=== PATIENT | female | born 1945 | race Caucasian/White ===

== ENCOUNTER 2024-02-06 05:11 | Observation (INO) ==
--- NOTE | 2023-12-29 09:04 | PAT Medication Instructions ---
Medication Instructions Date of Service December 29, 2023 Home Medications glimepiride 4 mg tablet 4 mg PO QAM metformin 500 mg tablet 1,000 mg PO BID omega 9-ezv-mwu-fish oil 1,200 mg (144 mg-216 mg) capsule (Fish Oil) 1 cap PO QPM pravastatin 40 mg tablet 40 mg PO QPM Prevagen 10 mg PO QAM aspirin 81 mg capsule 81 mg PO QAM cholecalciferol (vitamin D3) 25 mcg (1,000 unit) capsule (Vitamin D3) 25 mcg PO QAM insulin glargine 100 unit/mL subcutaneous solution (Lantus U-100 Insulin) 35 unit subcut HS insulin glargine 100 unit/mL subcutaneous solution (Lantus U-100 Insulin) 50 unit subcut QAM krill jlk-xm5-tbl-kmj-mw4-fiz-astax 1,500 mg-165 mg-67.5 mg capsule (Krill Oil ([place] 3 and 6)) 1 cap PO QAM liraglutide 0.6 mg/0.1 mL (18 mg/3 mL) subcutaneous pen injector (Victoza 2-Darnell) 1.8 mg subcut QAM vit C-vit B-lxlcko-llsctrbo-omega 3 100 mg-15 unit-2 mg-100 mg capsule 1 cap PO QAM STOP taking 2 weeks before surgery omega 1-fek-qsz-fish oil 1,200 mg (144 mg-216 mg) capsule (Fish Oil) 1 cap PO QPM Prevagen 10 mg PO QAM krill jpq-gb8-qhl-mww-vh1-scs-astax 1,500 mg-165 mg-67.5 mg capsule (Krill Oil ([place] 3 and 6)) 1 cap PO QAM vit C-vit R-hjbkbp-nzrvehom-omega 3 100 mg-15 unit-2 mg-100 mg capsule 1 cap PO QAM DO NOT take the morning of surgery glimepiride 4 mg tablet 4 mg PO QAM metformin 500 mg tablet 1,000 mg PO BID cholecalciferol (vitamin D3) 25 mcg (1,000 unit) capsule (Vitamin D3) 25 mcg PO QAM liraglutide 0.6 mg/0.1 mL (18 mg/3 mL) subcutaneous pen injector (Victoza 2-Darnell) 1.8 mg subcut QAM Take morning of surgery With a small sip of water, OTHERWISE NOTHING TO EAT OR DRINK AFTER MIDNIGHT: aspirin 81 mg capsule 81 mg PO QAM (unless surgeon directed otherwise) Take evening before surgery metformin 500 mg tablet 1,000 mg PO BID pravastatin 40 mg tablet 40 mg PO QPM insulin glargine 100 unit/mL subcutaneous solution (Lantus U-100 Insulin) 35 unit subcut HS Insulin Dependent Diabetic Patients * Test your blood sugar the morning of surgery * If Blood Sugar is GREATER THAN 150, take HALF of your regular dose of: insulin glargine 100 unit/mL subcutaneous solution (Lantus U-100 Insulin) (25 units) * If Blood Sugar is LESS THAN 150, DO NOT TAKE ANY: insulin glargine 100 unit/mL subcutaneous solution (Lantus U-100 Insulin) Other Notes If you have any questions please call us at [phone] or [phone] or [phone] or [phone]
--- NOTE | 2024-01-04 10:36 | Anesthesiology Consultation ---
Date of Service January 04, 2024 Assessment & Plan (1) Encounter for pre-operative examination: - systolic murmur: pt denies dizziness/lightheadedness/presyncope or dyspnea. She states has been told of a murmur in the past, no available records at this time. No significant valvular pathology on 2020 echocardiogram. Case discussed in detail with Dr. Fernandez who advised nothing is needed prior to surgery from her standpoint, but recommended a continuity of care document to PCP. Continuity of care document to be faxed to PCP, Dr. April Conte. - check BSG am DOS. - Outpatient joint assessment: Patient is currently scheduled for inpatient pathway. If re-evaluated and patient/surgeon requests outpatient pathway, patient is not recommended candidate for outpatient joint program from anesthesia standpoint. Chart Review Chart Review: Acceptable Risk for Surgery and Patient seen in Pre Admission Testing Teaching & Discussion Pre-Anesthesia Teaching/Discussion Notes: Instructed NPO after midnight before surgery, except medications with 15 cc of water. Medication instructions provided according to the PAT guidelines. History Surgery Operation Date: 02/06/24 07:15 Proposed Procedures p Right Total Knee Arthroplasty - Josh Sands, DO Height/Weight Height: 5 ft 4 in Weight: 76.1 kg Allergies Allergy/AdvReac Type Severity Reaction Status Date / Time Penicillins Allergy Severe Hives Verified 12/23/23 14:41 acetaminophen [From Percocet] Allergy Intermediate Confusion Verified 12/23/23 14:41 adhesive tape Allergy Mild Rash Verified 12/23/23 14:41 codeine Allergy Mild Confusion Verified 12/23/23 14:41 oxycodone [From Percocet] Allergy Mild Confusion Verified 12/23/23 14:41 simvastatin [From Zocor] Allergy Mild Cough Verified 12/23/23 14:41 ACEON Allergy Mild Rash Uncoded 12/23/23 14:41 AVAPRO Allergy Mild Unknown Uncoded 12/23/23 14:41 BACTRIM Allergy Mild Nausea Uncoded 12/23/23 14:41 MORPHINE Allergy Mild Vomiting Uncoded 12/23/23 14:41 OXYCODONE Allergy Mild Rash Uncoded 12/23/23 14:41 VANCOMYCIN Allergy Mild Rash Uncoded 12/23/23 14:41 VICODIN Allergy Mild Rash Uncoded 12/23/23 14:41 ZOCOR Allergy Mild Rash Uncoded 12/23/23 14:41 Medications Home Medications Medication Instructions Recorded Confirmed Last Taken glimepiride 4 mg tablet 4 mg PO QAM 12/20/23 12/23/23 Unknown metformin 500 mg tablet 1,000 mg PO BID 12/20/23 12/23/23 Unknown omega 9-eip-uyc-fish oil 1,200 mg 1 cap PO QPM 12/20/23 12/23/23 Unknown (144 mg-216 mg) capsule (Fish Oil) pravastatin 40 mg tablet 40 mg PO QPM 12/20/23 12/23/23 Unknown Prevagen 10 mg PO QAM 12/23/23 12/23/23 Unknown aspirin 81 mg capsule 81 mg PO QAM 12/23/23 12/23/23 Unknown cholecalciferol (vitamin D3) 25 25 mcg PO QAM 12/23/23 12/23/23 Unknown mcg (1,000 unit) capsule (Vitamin D3) insulin glargine 100 unit/mL 35 unit subcut HS 12/23/23 12/23/23 Unknown subcutaneous solution (Lantus U-100 Insulin) insulin glargine 100 unit/mL 50 unit subcut QAM 12/23/23 12/23/23 Unknown subcutaneous solution (Lantus U-100 Insulin) krill 1 cap PO QAM 12/23/23 12/23/23 Unknown oak-bk9-uqf-ckn-ov8-tct-astax 1,500 mg-165 mg-67.5 mg capsule (Krill Oil ([place] 3 and 6)) liraglutide 0.6 mg/0.1 mL (18 mg/3 1.8 mg subcut QAM 12/23/23 12/23/23 Unknown mL) subcutaneous pen injector (Victoza 2-Darnell) vit C-vit M-cuxyyd-nxdxrvwt-omega 1 cap PO QAM 12/23/23 12/23/23 Unknown 3 100 mg-15 unit-2 mg-100 mg capsule ibuprofen 100 mg tablet 200 mg PO Q6H PRN Pain 01/04/24 01/04/24 Unknown losartan 25 mg tablet 25 mg PO QPM 01/04/24 01/04/24 Unknown Additional Notes: Patient was instructed to check with surgeon's office on ibuprofen instructions and this was written on provided medication instructions. She verbalized understanding. Past Medical History Medical History (Updated 01/04/24 @ 10:49 by Catalina Green PA-C) Diabetes IDDM Hx of nephrolithotomy with removal of calculi (~1971) Hx of renal calculi last renal stone 01/2021 Hyperlipidemia Nausea and vomiting after administration of anesthetic agent denies needing scop patch Patient denies h/o stroke, seizures, heart attack, heart failure, HTN, blood clots/DVTs or blood transfusions. 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 > had repeat surgery approx 18 months later for cyst Hx of bilateral cataract extraction Hx of bladder repair surgery Hx of tonsillectomy Hx of tubal ligation Hx of vaginal hysterectomy Past Anesthesia History No Hx of Anesthesia Complications and No Family Hx of Anesthesia Complications History of PONV No Hx of Motion Sickness and History of PONV (denies needing scop patch) Social History Smoking Status: Former smoker Smoking cigarettes per day: 1/2 PPD Do You Dip or Chew Tobacco: No Smoking End Date: Quit 2003 Hx Alcohol Use: Yes Alcohol type: beer alcohol intake frequency: holidays/special occasions only Hx Substance Use: No substance use type: does not use Review of Systems Snoring, denies witnessed apneas. Patient denies chest pain, shortness of breath, dyspnea on exertion, reflux, fever, chills, cough, wheezing, or palpitations. Physical Exam Vital Signs Vitals BP 172/88 P 72 TEMP 98.3 SP02 98% on RA RESP 18 Physical Patient resting comfortably in chair in no acute distress, alert and oriented, responding appropriately throughout visit Full cervical extension range of motion without pain TMD 3.5 finger breadths Mallampati Score 2 Dentition: removable plate; denies chipped or loose teeth, caps/crowns, implants or bridges Lungs: normal respiratory effort. Good air movement, clear throughout to auscultation, no adventitious breath sounds Cardiac: regular rate and rhythm, 3/6 systolic murmur RUSB Carotid arteries: negative bruit bilat Lab Results Anesthesia Preop Results Results Anesthesia Widget: WBC 5.13 K/ul (4.8-10.8) 01/04/24 Hgb 12.8 g/dl (12.0-16.0) 01/04/24 Hct 38.6 % (37.0-47.0) 01/04/24 Plt 214 K/uL (130-400) 01/04/24 Na 138 mmol/L (136-145) 01/04/24 K 4.6 mmol/L (3.5-5.1) 01/04/24 Cl 107 mmol/L (98-107) 01/04/24 CO2 24 mmol/L (21-32) 01/04/24 BUN 20 mg/dl (6-23) 01/04/24 Creat 0.98 mg/dl (0.6-1.2) 01/04/24 Glucose Level 91 mg/dl (70-99(Fasting)) 01/04/24 PT 11.1 Seconds (9.0-12.0) 01/04/24 PTT 29 Seconds (21-31) 01/04/24 INR 1.0 (0.9-1.1) 01/04/24 HA1c 7.6 % (4.5-5.6) H 01/04/24 Blood Type A Positive 01/04/24 Antibody Screen NEGATIVE 01/04/24 Testing Laboratory Results Surgeon's office notified of elevated A1c. Electrocardiogram Date: 01/04/24 NSR, rate 73 bpm Left axis deviation Nonspecific intraventricular conduction block Minimal voltage criteria for LVH, may be normal variant Chest X-Ray Date: 01/04/24 No acute chest disease. Echocardiogram Date: 09/18/21 EF 60% No obvious RWMA No significant valvular pathology
--- NOTE | 2024-02-02 14:29 | History & Physical Report ---
Date of Service February 02, 2024 Assessment & Plan (1) Osteoarthritis of right knee: We will proceed with a right total knee arthroplasty. Postoperatively she will be started on aspirin for DVT prophylaxis and kept overnight in the hospital for postop medical management. She plans to have the hospital set up home health for discharge. History of Present Illness Chief Complaint: Osteoarthritis of the right knee. Primary Care Provider: NO PCP Sommer is a pleasant 78-year-old female who has been dealing with chronic increasing bilateral knee pain. Her biggest complaint is getting off her kitchen floors. She also has pain going up and down stairs. Most of her pain is laterally. She has noticed an extensive valgus deformity of her right knee. X-rays clinical examination been diagnostic for advanced osteoarthritis of the right knee. After failing conservative treatment, she has elected proceed with a right total knee arthroplasty. Allergies Allergy/AdvReac Type Severity Reaction Status Date / Time Penicillins Allergy Severe Hives Verified 12/23/23 14:41 acetaminophen [From Percocet] Allergy Intermediate Confusion Verified 12/23/23 14:41 adhesive tape Allergy Mild Rash Verified 12/23/23 14:41 codeine Allergy Mild Confusion Verified 12/23/23 14:41 irbesartan Allergy Mild Unknown Verified 02/02/24 06:51 oxycodone [From Percocet] Allergy Mild Confusion Verified 12/23/23 14:41 simvastatin [From Zocor] Allergy Mild Cough Verified 12/23/23 14:41 hydrocodone [From Vicodin] AdvReac Mild Rash Verified 02/02/24 06:51 morphine AdvReac Mild Vomiting Verified 02/02/24 06:51 perindopril AdvReac Mild Rash Verified 02/02/24 06:48 sulfamethoxazole AdvReac Mild Nausea Verified 02/02/24 06:51 [From Bactrim] trimethoprim [From Bactrim] AdvReac Mild Nausea Verified 02/02/24 06:51 vancomycin AdvReac Mild Rash Verified 02/02/24 06:51 Home Medications Medication Instructions Recorded Confirmed Type glimepiride 4 mg tablet 4 mg PO QAM 12/20/23 12/23/23 History metformin 500 mg tablet 1,000 mg PO BID 12/20/23 12/23/23 History omega 8-bwd-bsg-fish oil 1,200 mg 1 cap PO QPM 12/20/23 12/23/23 History (144 mg-216 mg) capsule (Fish Oil) pravastatin 40 mg tablet 40 mg PO QPM 12/20/23 12/23/23 History Prevagen 10 mg PO QAM 12/23/23 12/23/23 History aspirin 81 mg capsule 81 mg PO QAM 12/23/23 12/23/23 History cholecalciferol (vitamin D3) 25 25 mcg PO QAM 12/23/23 12/23/23 History mcg (1,000 unit) capsule (Vitamin D3) insulin glargine 100 unit/mL 35 unit subcut HS 12/23/23 12/23/23 History subcutaneous solution (Lantus U-100 Insulin) insulin glargine 100 unit/mL 50 unit subcut QAM 12/23/23 12/23/23 History subcutaneous solution (Lantus U-100 Insulin) krill 1 cap PO QAM 12/23/23 12/23/23 History rew-gr6-mkl-kkj-yp7-tkf-astax 1,500 mg-165 mg-67.5 mg capsule (Krill Oil ([place] 3 and 6)) liraglutide 0.6 mg/0.1 mL (18 mg/3 1.8 mg subcut QAM 12/23/23 12/23/23 History mL) subcutaneous pen injector (Victoza 2-Darnell) vit C-vit W-qptqll-hdfkvopj-omega 1 cap PO QAM 12/23/23 12/23/23 History 3 100 mg-15 unit-2 mg-100 mg capsule ibuprofen 100 mg tablet 200 mg PO Q6H PRN Pain 01/04/24 01/04/24 History losartan 25 mg tablet 25 mg PO QPM 01/04/24 01/04/24 History Past Med/Surg History Medical History Nausea and vomiting after administration of anesthetic agent denies needing scop patch Hyperlipidemia Hx of renal calculi last renal stone 01/2021 Hx of nephrolithotomy with removal of calculi (~1971) Diabetes IDDM Surgical History Hx of bilateral cataract extraction 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 > had repeat surgery approx 18 months later for cyst Hx of tubal ligation Hx of bladder repair surgery Hx of vaginal hysterectomy History of lithotripsy History of arthroscopy of both knees Hx of tonsillectomy Social History Smoking Status: Former smoker Tobacco Type: Cigarettes Cigarettes Per Day: 1/2 PPD; Second Hand Exposure: No; Do You Dip or Chew Tobacco: No; Hx Alcohol Use: Yes Alcohol type: beer Hx Substance Use: No Preferred Language: Amharic Communication Ability: Effective Print Inspector Required: No Beliefs That Will Affect Care: None Current Living Situation: Alone Feels Safe at Home: Yes Assistive Devices: Denture - Upper Review of Systems All systems reviewed & are unremarkable except as noted in HPI & below. Physical Exam On physical examination the right knee, she has a valgus deformity. She has tenderness palpation of the distal lateral femoral condyle and over the lateral joint line.. Constitutional WD/WN, vitals as above Eyes PERRL, conjunctivae normal, anicteric sclerae ENMT external ear and nose normal, oropharynx normal Neck trachea midline, no thyromegaly Respiratory normal respiratory effort Cardiovascular RRR, no murmur, no edema Gastrointestinal (Abdomen) normal bowel sounds, soft, nontender, no hepatosplenomegaly Psychiatric A+Ox3, euthymic affect Results & Data Results & Data Laboratory Results . Diagnostic Findings X-rays of the right knee show advanced osteoarthritis with joint space narrowing, osteophyte formation, and qibr-jy-bvdf tubulation. PG Care Time/CCT Total # of Minutes Spent Total Time Spent with Patient: Total time spent is greater than 50% in coordination of care (as documented) at patient's floor/unit and/or counseling patient: Coding Level of Care Code None Diagnoses Osteoarthritis of right knee M17.11
[2024-02-06] MEDS: LR 500ML BOLUS, THEN 15ML/HR IV SCH (05:53)
[2024-02-06] MEDS: ACETAMINOPHEN 500 MG TAB PO SCH ×2 (05:54→13:41)
[2024-02-06] MEDS: GABAPENTIN 300 MG CAP PO SCH (05:55)
[2024-02-06] MEDS: FAMOTIDINE 20 MG TAB PO SCH (05:55)
[2024-02-06] MEDS: dexAMETHasone**PF** 10 MG/ML VIAL IV SCH (05:55)
[2024-02-06] MEDS ORDERED: ROPIVACAINE 0.5% 5 MG/ML 30 ML VIAL ONE (06:11)
[2024-02-06] MEDS ORDERED: BUPIVACAINE 0.5 % 5 MG/1 ML PF 10ML VIAL ONE (06:11)
--- NOTE | 2024-02-06 06:21 | History & Physical Bridge Note ---
Date of Service February 06, 2024 History & Physical Bridge Note I have examined the patient, reviewed the History & Physical and in the interval since the performance of the History & Physical I have noted the following changes of clinical significance: no changes noted
[2024-02-06] MEDS ORDERED: fentaNYL citrate PF 100 MCG/2 ML VIAL ONE (06:28)
[2024-02-06] MEDS ORDERED: MIDAZOLAM HCL 1 MG/ML 2ML VIAL ONE (06:28)
[2024-02-06] MEDS ORDERED: Nursing to Pharmacy Communication SCH (06:30)
[2024-02-06] MEDS ORDERED: PROPOFOL IV EMULSION 10 MG/ML 20 ML VIAL IV ONE (06:31)
[2024-02-06] MEDS ORDERED: ONDANSETRON INJ 2 MG/ML 2 ML VIAL ONE (06:31)
[2024-02-06] MEDS ORDERED: fentaNYL citrate PF 100 MCG/2 ML VIAL IV PRN (06:33)
[2024-02-06] MEDS ORDERED: ONDANSETRON INJ 2 MG/ML 2 ML VIAL IV PRN (06:33)
[2024-02-06] MEDS ORDERED: ePHEDrine sulfate 50 MG/ML AMP IV PRN (06:33)
[2024-02-06] MEDS ORDERED: ATROPINE SULFATE 0.1 MG/ML 10ML SYR IV PRN (06:33)
[2024-02-06] MEDS: LR 60ML/HR IV SCH (06:41)
[2024-02-06] MEDS: TRANEXAMIC ACID 1,000 MG **IV Pre-op IV SCH (06:42)
[2024-02-06] MEDS: ceFAZolin 2000MG 2,000 MG/15 ML SYR IV SCH ×2 (07:04→13:42)
[2024-02-06] MEDS: ROPIV 0.5% 246mg, Ketorolac 30mg, EPINEPHrine 0.5mg in NSS INFIL SCH (07:48)
[2024-02-06] MEDS: ORTHO JOINT ANESTHETIC ONE (07:49)
[2024-02-06] MEDS: TRANEXAMIC ACID 1,000 MG **IV Intra-op IV SCH (08:00)
--- NOTE | 2024-02-06 08:09 | Operative Report ---
PG Post Operative Report Pre & Post Diagnosis Operation Date: 02/06/24 07:15 Pre-Op Diagnosis: Right Knee Osteoarthritis Post-Op Diagnosis: Right Knee Osteoarthritis I identified the patient and participated in the time-out.: Yes Procedure Operation Date: 02/06/24 07:15 Actual Procedures p Right Total Knee Arthroplasty(Right) - Josh Sands DO Surgeon Josh Sands DO Immigration Officer Josh Becerra PA-C Estimated Blood Loss 30 Findings Consistent with Post-Op Diagnosis Specimens Right femoral tibial bone Description of Procedure Implants used: I used a John Persona total knee arthroplasty system with a size 5 standard PS femur, C tibia, 31 oval patella, and a size 12 CPS polyethylene bearing. All components were cemented in place with Biomet cement. Sommer arrived [facility] for the above procedure. She was seen in the preoperative holding area and the operative extremity was identified and signed. She was given a preoperative antibiotic, TXA, a spinal anesthetic and an adductor nerve block. She was taken back to the operating room and laid on the table in supine position. She was given basic sedation. The operative knee was then prepped and draped in sterile fashion. A timeout was done, and the patient and the operative extremity was properly identified. A midline incision was made directly over the patella. Dissection was taken down to the extensor mechanism. A midvastus arthrotomy was used. The medial retinaculum was released and the fat pad was mostly excised. The knee was flexed and the ACL, PCL, and meniscus were removed. A drill was sent down the center of the femoral canal followed by an intramedullary tony. Off that tony a distal femoral cutting block was placed. 9 mm was resected off the distal femur at 5 of valgus. A posterior referencing AP sizing guide was then placed on the distal femur. The femur measured to be a size 5. 2 drill holes were placed in 3 of external rotation. A 4-in-1 cutting block was then impacted into place. Anterior, posterior, and chamfer cuts were then made. The proximal tibia was then exposed. An external tibial alignment guide was placed. A tibial cut guide was then anchored in place and the proximal tibia was then resected. The posterior aspect of the knee was then opened up and any additional meniscus fragments and osteophytes were removed. The tibia measured to be a size C. The tibial plate was then placed in the appropriate rotation and the tibia was drilled and punched. Trial components were then placed. I used a size 12 CPS polyethylene insert. The knee was brought through a full range of motion and felt to be stable. The peg holes for the femoral component were then drilled. The patella was then everted and 9 mm was resected off the posterior aspect of the patella. The patella measured to be a size 31 oval. 3 peg holes were then drilled. A trial patella was placed. The knee was once again brought through a full range of motion and felt to be stable. Trial components were then removed. The surrounding soft tissues were injected with 100 cc of an orthopedic pain control cocktail. All components were then cemented into place with Biomet cement. The final polyethylene insert was then snapped into place. Once cement was dry the tourniquet was deflated. Hemostasi s was obtained. A dilute betadyne lavage was then done for 3 minutes. The joint was then irrigated with normal saline solution. The midvastus arthrotomy was then closed with #1 Vicryl suture. The skin was closed with 2-0 Vicryl, 3- 0V lock suture, and kika. A soft compressive dressing was placed. She was then transferred to a hospital bed and taken to the postanesthesia care unit in stable condition. She tolerated the procedure well. Josh Becerra PA-C, was present for the entire procedure. He was critical for patient positioning, prepping, draping, retraction exposure, wound closure and application of sterile dressing. I attest to the content of the Intraoperative Record and any orders documented therein. Any exceptions are noted below.
--- NOTE | 2024-02-06 08:57 | XRay Report ---
RIGHT KNEE 2 VIEWS History: Right total knee arthroplasty. Degenerative arthritis. Postop. FINDINGS: The patient is status post a right total knee arthroplasty. The hardware is intact. No frac ture or dislocation. Skin kika are in place. IMPRESSION: Right total knee arthroplasty. No evidence for hardware complication. ACT 112: Negative or not required by law. Electronically signed by: Cong Costa M.D. 02/06/2024 8:55 AM
--- NOTE | 2024-02-06 09:39 | Anesthesiology Progress Note ---
Date of Service February 06, 2024 Anesthesia Post Procedure Vital Signs Vital Signs: Temp Pulse Pulse Resp BP Pulse Ox O2 Del Method 02/06/24 09:35 71 16 140/63 94 Room Air 02/06/24 09:25 80 13 141/71 H 97 Room Air 02/06/24 09:15 71 15 135/69 97 Room Air 02/06/24 09:05 75 17 144/74 H 98 Room Air 02/06/24 08:55 74 15 149/72 H 96 Room Air 02/06/24 08:45 76 18 138/68 96 Room Air 02/06/24 08:35 75 12 133/64 100 Oxymask 02/06/24 08:27 97.5 F L 87 19 123/66 99 Oxymask 02/06/24 05:18 98.6 F 74 17 177/85 H 98 Room Air O2 Flow Rate 02/06/24 09:35 02/06/24 09:25 02/06/24 09:15 02/06/24 09:05 02/06/24 08:55 02/06/24 08:45 02/06/24 08:35 5 02/06/24 08:27 5 02/06/24 05:18 Pain Intensity Right Knee: Pain Intensity: 2 Transfer of Care Handoff Completed per policy Notes Mental Status: alert / awake / arousable and participated in evaluation Patient Amnestic to Procedure: Yes Nausea / Vomiting: adequately controlled Pain: adequately controlled Airway Patency, RR, SpO2: stable & adequate BP & HR: stable & adequate Hydration State: stable & adequate Neuraxial Anesthesia: was administered and sensory block is resolving Anesthetic Complications: no major complications apparent and Pt Satisfied with anesthetic care
[2024-02-06] MEDS ORDERED: bisacodyL 10 MG SUPP PR PRN (10:14)
[2024-02-06] MEDS ORDERED: PHARMACY GLYCEMIC MGMT CONSULT PRN (10:14)
[2024-02-06] MEDS ORDERED: MAGNESIUM HYDROXIDE SUSP 30 ML UDC PO PRN (10:14)
[2024-02-06] MEDS ORDERED: HYDROmorphone INJ 0.5 MG/0.5 ML SYR IV PRN (10:14)
[2024-02-06] MEDS ORDERED: METOCLOPRAMIDE HCL INJ 5 MG/ML 2 ML VIAL IV PRN (10:14)
[2024-02-06] MEDS ORDERED: NALOXONE HCL 0.4 MG/1 ML VIAL/CARP IV PRN (10:14)
[2024-02-06] MEDS: ceFAZolin 2,000 MG/15 ML IV PUSH IV ONE (10:27)
--- NOTE | 2024-02-06 10:40 | Pharmacy Report ---
Pharmacy Glycemic Short Note 2 - Date of Service February 06, 2024 - Glycemic Short BSG Results (Last 24 hours): 02/06/24 02/06/24 05:46 09:28 POC Glucose 103 H 127 H OUTPATIENT ANTIDIABETIC REGIMEN: * Lantus 50 units SQ QAM * Lantus 35 units SQ HS * Victoza 1.8mg SQ daily * metformin ER 1000mg BID * glimepiride 4mg QAM * HbA1c 7.6% (01/04/24) ASSESSMENT: * Sommer is a 79YOF admitted status post right total knee arthroplasty and a history of type 2 diabetes mellitus. Pharmacy has been consulted to assist with glycemic management while inpatient. * Preoperative BSG in goal range, dexamethasone 10mg IV given preoperatively, last dose Lantus given last night prior to admission, will give approximately 0.3units/kg basal insulin to cover steroids. Basal scale added between to allow for up to a weight based stress of 3 daily. * Novolog initiated at a weight based stress of 3, may need loosened as steroid effects wear off. PLAN FOR INPATIENT GLYCEMIC CONTROL: * Hold outpatient oral diabetes medications * Basal insulin * Lantus 20 units SQ with lunch x1 * Lantus 0-20 units SQ BID (see eMAR for additional details) * Bolus insulin * NovoLog per scale ACHS or Q6hrs while NPO * Goal Range: Low 110 mg/dL - High 140 mg/dL * Correction Factor: 20 mg/dL/unit * Nutritional / Prandial insulin per carb ratio of 1 unit per 6 grams CHO consumed
[2024-02-06] MEDS: DOCUSATE SODIUM 100 MG CAP PO SCH (10:54)
[2024-02-06] MEDS: SODIUM CHLORIDE 0.9% 1,000 ML IV SCH (10:54)
[2024-02-06] MEDS: KETOROLAC TROMETHAMINE 15 MG/ML VIAL IV SCH (10:54)
[2024-02-06] MEDS: ASPIRIN 81 MG ECTAB PO SCH (11:21)
[2024-02-06] MEDS: MULTIVITAMIN TAB PO SCH (11:21)
[2024-02-06] MEDS: LANTUS PER UNIT CHARGE SC ONE (12:38)
[2024-02-06] MEDS: INSULIN ASPART PER UNIT CHARGE SC SCH (12:38)
[2024-02-06] MEDS: LANTUS PER UNIT CHARGE SC SCH (21:11)
[2024-02-06] MEDS: PRAVASTATIN SOD 40 MG TAB PO SCH (21:12)
[2024-02-06] MEDS: LOSARTAN POTASSIUM 25 MG TAB PO SCH (21:14)
[2024-02-06] MEDS: SENNA 8.6 MG TAB PO SCH (21:15)
[2024-02-07] MEDS: ONDANSETRON INJ 2 MG/ML 2 ML VIAL IV PRN (07:25)
[2024-02-07] MEDS ORDERED: LOSARTAN POTASSIUM 25 MG TAB PO SCH (09:15)
[2024-02-07] MEDS: LANTUS PER UNIT CHARGE SC SCH ×2 (09:33→21:21)
[2024-02-07] MEDS: traMADol HCL 50 MG TABLET PO PRN (10:05)
[2024-02-07] MEDS: LOSARTAN POTASSIUM 25 MG TAB PO SCH (10:05)
--- NOTE | 2024-02-07 11:11 | Orthopedic Progress Note ---
Date of Service February 07, 2024 Assessment & Plan (1) Status post right knee replacement: Overall, she is doing quite well today with good pain control to the right knee. She participated well with physical therapy this morning working on ambulation and range of motion exercises. She is on aspirin for DVT prophylaxis. She can be discharged to home later this morning pending formal physical therapy evaluation recommendations. She is also having a little bit of hypertension this morning but there was some confusion with her losartan. Losartan was given and we will recheck her blood pressure prior to discharge. If stable, she can be discharged home. She will follow-up with orthopedics in 2 weeks for postoperative management. Subjective . Sommer was seen and evaluated this morning resting comfortably in no apparent distress. She notes that her pain is well-controlled to the right knee. She has been up and out of bed with no significant issues today. She has worked with physical therapy today and was able to participate with ambulation and range of motion exercises. She denies any other concerns today. Review of Systems All systems reviewed & are unremarkable except as noted in HPI & below. Physical Exam . On physical evaluation of the right knee, dressings are clean, dry, intact. Her leg is held in full extension. She has active plantarflexion dorsiflexion of the right ankle. +2 DP and PT pulses. Less than 2-second capillary refill. Normal sensation. Neurovascular intact. Results & Data Results & Data Laboratory Results . Diagnostic Findings . Postoperative x-rays of the right knee show prosthesis to be anatomical alignment with no signs of fracture complication or loosening. PG Care Time/CCT Total # of Minutes Spent Total Time Spent with Patient: Total time spent is greater than 50% in coordination of care (as documented) at patient's floor/unit and/or counseling patient: Coding Level of Care Code 79559 Post Operative Follow-Up Diagnoses Status post right knee replacement Z96.651
--- NOTE | 2024-02-07 11:13 | Discharge Summary ---
Date of Service February 07, 2024 Admission HPI (Per Admitting) Sommer is a pleasant 78-year-old female who has been dealing with chronic increasing bilateral knee pain. Her biggest complaint is getting off her kitchen floors. She also has pain going up and down stairs. Most of her pain is laterally. She has noticed an extensive valgus deformity of her right knee. X-rays clinical examination been diagnostic for advanced osteoarthritis of the right knee. After failing conservative treatment, she has elected proceed with a right total knee arthroplasty. Admission Exam (Per Admitting) On physical examination the right knee, she has a valgus deformity. She has tenderness palpation of the distal lateral femoral condyle and over the lateral joint line.. Principal Diagnosis Same as "Discharge Diagnosis" noted below under Discharge Instructions. Discharge Exam . On physical evaluation of the right knee, dressings are clean, dry, intact. Her leg is held in full extension. She has active plantarflexion dorsiflexion of the right ankle. +2 DP and PT pulses. Less than 2-second capillary refill. Normal sensation. Neurovascular intact. Discharge Data Procedures Performed Operation Date: 02/06/24 07:15 Actual Procedures p Right Total Knee Arthroplasty(Right) - Josh Sands DO Ordered Studies 02/06/24 05:00 US - OR guided needle placemen Routine Hospital Course (1) Status post right knee replacement: On February 06, 2024 Sommer arrived at [facility] and underwent a right total knee arthroplasty performed by Dr. Sands with no complications. She had a spinal anesthetic. Postoperatively, she was started on aspirin for DVT prophylaxis and transferred to the general orthopedic floor in stable condition. Her hospital course was uneventful. On postoperative day #1, her vital signs are stable and her pain is well-controlled. She participated well with physical therapy working on ambulation and range of motion exercises. She was then discharged home in stable condition. She will follow-up in 2 weeks with orthopedics for postoperative management. PG Care Time/CCT Total # of Minutes Spent Total Time Spent with Patient: Total time spent is greater than 50% in coordination of care (as documented) at patient's floor/unit and/or counseling patient: Discharge Plan Discharge Items Patient Disposition: Home - Home Health Services Reason For Visit: Degenerative Joint Disease Right Knee Discharge Diagnosis: Same Activity: Per Instructions section Non-emergency contact: Surgeon Call non-emergency contact if: your temperature is above 101.5, your wound has increased redness, your wound has increased drainage and your wound pain has increased Follow-up/Referrals: April Conte D.O. [Primary Care Provider] - Diet: Regular Addtl Attending Provider Instructions: Activity and Therapy Recommendations: * If you are using [facility] then therapy will be provided at your home until they feel you have accomplished all of your goals. * If you are using [facility] then Physical Therapy will be provided until they feel you are ready to start Outpatient Physical Therapy. * If you are not using home therapy then Outpatient Physical Therapy should start about 3-5 days from your day of surgery. Therapy will last about 6-10 weeks * It is important not to put a pillow under your knee when you are relaxing or sleeping. It is just as important to make sure you are getting your knee perfectly straight as it is to regain your knee bend. * You were shown a series of exercises in the hospital. Do these exercises three times each day including the exercises you were shown in physical therapy. * Get up and walk several times each day. For the first four weeks, try not to stand or walk for more than one hour at a time. If you do stand or walk for more than one hour, you will not hurt anything, but your leg will likely swell. * As you feel comfortable, you may change from the walker or crutches to a cane and then to independent walking. Medications: * Narcotic You will likely be sent home from the hospital with a prescription for the narcotic pain medication that worked best throughout your stay. * Cefadroxil -take the antibiotic twice a day for 10 days to help prevent infection. * Aspirin Most patients will be required to take Aspirin 81mg twice a day for 6 weeks after surgery. This is obtained [id number] and a prescription is not necessary. * Other medications may be prescribed for specific circumstances. If you have any questions, please call the office at . * Resume previous home medications unless otherwise instructed TEDs/Elastic Stockings: The white elastic stockings help limit swelling and prevent blood clots from forming in your legs.~ The more you wear them, the more they work. Wear them for six weeks. Dressing Care: The dressing can be changed after physical therapy on postop day #1. Daily dry dressing changes for a few days, especially if the incision is still draining some. If the incision is not draining then you may leave the kika open to air. If there is a little bit of drainage or if the kika are getting stuck on your clothing then cover the incision with a dry dressing. The kika will be removed at your 2 week follow-up appointment. Showering: You may shower 5 days from the day of surgery as long as the incision is no longer draining. You may shower with the kika exposed. Let soapy water run over the kika and pat them dry. Do not scrub or soak the incision. Things To Watch For: * Drainage from the incision site that occurs more than one week after your surgery. * Increased redness at the incision site. * Fever above 102 degrees Fahrenheit. * Unusual chest pain or shortness of breath. * Call [facility] at with any of the above problems Follow-Up Visit: Follow-up with Dr. Sands's PA (Josh Becerra) 2-3 weeks after your day of surgery. He will remove your kika and answer any questions. If you have any additional questions or concerns, Dr Sands is usually in the office at the same time and will be available An appointment was probably scheduled when you signed-up for surgery in the office. If you have any questions call Office Instructions: More detailed instructions as well as Frequently Asked Questions were provided in a folder by our office when you signed-up for surgery. Please review these instructions when you get home. If you have any further questions or concerns, please feel free to call the office at [phone] Pending Studies at Discharge: No Stand-Alone Forms: [facility], Smoking Cessation Medications and DC Order Prescriptions: New tramadol 50 mg Tablet 50 mg PO Q6H PRN (Reason: pain) Qty: 30 0RF cefadroxil 500 mg capsule 500 mg PO BID 10 Days Qty: 20 0RF aspirin 81 mg Tablet,Delayed Release (Dr/Ec) 81 mg PO BID 42 Days Qty: 0 0RF Continued metformin 500 mg tablet 1,000 mg PO BID omega 3-blg-tat-fish oil [Fish Oil] 1,200 (144-216) mg capsule 1 cap PO QPM glimepiride 4 mg tablet 4 mg PO QAM pravastatin 40 mg tablet 40 mg PO QPM insulin glargine [Lantus U-100 Insulin] 100 unit/mL Solution 50 unit SUBCUT QAM insulin glargine [Lantus U-100 Insulin] 100 unit/mL Solution 35 unit SUBCUT HS cholecalciferol (vitamin D3) [Vitamin D3] 25 mcg (1,000 unit) Capsule 25 mcg PO QAM Ocuvite 512-51-8-100 gx-oscw-bi-mg Capsule 1 cap PO QAM Victoza 2-Darnell 0.6 mg/0.1 mL (18 mg/3 mL) Pen Injector 1.8 mg SUBCUT QAM Krill Oil ([place] 3 and 6) 1,500-165-67.5 mg Capsule 1 cap PO QAM Prevagen 1 unit 10 mg PO QAM losartan 25 mg Tablet 25 mg PO QPM Discontinued aspirin 81 mg Capsule 81 mg PO QAM ibuprofen 100 mg Tablet 200 mg PO Q6H PRN (Reason: Pain) Evaristo/Other Patient Handouts: Managing Type 2 Diabetes Admission Data Admit Date/Time: 02/06/24 08:28 Attending Provider: Josh Sands Admit Provider: Josh Sands Primary Care Provider: April Conte Other Providers: [facility]; [facility]
--- NOTE | 2024-02-07 11:40 | Hospitalist Consultation ---
Date of Consultation February 07, 2024 Assessment & Plan (1) Status post right knee replacement: S/p right total knee arthroplasty with Dr. Sadns on 02/05 Perioperative antibiotics, pain control, DVT PPx, and fluids per the primary team Hospital medicine was consulted on postop day #1 for acute onset of hypertension at 210/82 CBC, CMP, mag, troponin ordered Trend a.m. CBC, BMP, mag (2) Hypertension: Patient normally takes losartan 25 mg p.o. QPM, but she notes this is for her kidneys Recommend holding scheduled Toradol as may be NSAID induced; ?NNAMDI Hydralazine 5 mg IV q4h as needed for SBP >200 mmHg Unclear etiology; may be secondary to stress response, pain from recent surgery, or white-coat syndrome (3) Hypomagnesemia: Mag low at 1.4 Magnesium sulfate 1 g x 2 given Recheck a.m. mag (4) Elevated troponin: Troponin elevated at 36.4-->50.3 Trend q6h x 2 Clinically, patient denies chest pressure, headache, chest palpitations, or pleuritic CP (5) Diabetes: Last A1c 7.6% on 01/04/2024 T2DM diet [facility] Pharmacy glycemic consult (6) White coat syndrome with hypertension: Plan Will continue to monitor hypertension overnight, and trend troponin. Reassess a.m. blood pressure. Thank you for allowing us to precipitate in the care of this patient, please reach out with any questions or concerns; we will continue to follow. Supervising Physician Co-Signing Physician Notes I personally saw and examined the patient. I independently reviewed the labs, EKG, imaging, problem list, medication list, past medical history and family history. I verified all ballard points and agree with Cong Trujillo PA-C with the following exceptions and/or additions: 79 year old female POD#1 right total knee arthroplasty. Medicine consulted for hypertension. Losartan was restarted by orthopedic team today. Her pain is well controlled although she does feel stressed. She notes a history of significant white coat hypertension which usually resolves when she goes home. No chest pain, shortness of breath or headache. O/E HS RRR, no murmurs, Chest CTAB, Abdo SNT A/P White coat hypertension / hypertensive urgency - troponin mildly elevated however she also has regional EKG changes (inferior TWI) therefore will get echocardiogram for reassurance to assess for wall motion abnormalities. No chest pain or shortness of breath to suggest acute coronary syndrome. Stop Toradol. Given troponin rise recommend reducing hydralazine parameters to sBP > 180 however risk of over treating still much more than risk of under treating especially with history of variable blood pressure and white coat hypertension. Contact dermatitis - skin changes under eye likely from tape from operation. Recommend topical moisturizer currently. Recommend against diphenhydramine as requested by family. She does not feel it is even sufficiently itchy to warrant a non sedating anti-histamine. Consider low dose steroid cream if getting worse. Otherwise as above History of Present Illness Reason for Consultation: Hypertension Requesting Physician: Josh Sands DO Attending Physician: Josh Sands DO History of Present Illness Sommer is a 79-year-old female with PMH of HTN and osteoarthritis of the right knee. She presented for a right total knee arthroplasty with Dr. Josh Sands on 02/06/2024. Per review of operative note, EBL was listed as 30 cc, and findings were consistent with postop diagnosis. Per review of vitals, patient has been hypertensive the morning postop, with BP reaching a peak of 210/82 around 10:30 AM. Patient reports she was feeling slightly stressed this morning, and was in some pain due to her right knee. She reports that nursing took the blood pressure around 6 times (in both arms, and both manually and automatically) in quick succession, and believes this might have contributed to slight elevation of blood pressure. She does check her blood pressure at home via a home cuff, and it normally runs around 138 systolic, per patient. At time of consult, she has no new complaints. She rates her right knee pain as 1/10 at present. At worst, it has been a 6/10, and she characterized the pain as a "burning, achy" pain that comes and goes. No radiation down the leg, or up towards the back. The pain is worse when she puts pressure on it, but she does note she has been up and walking today to the bathroom. She has been eating and drinking well since being up. Last BM was yesterday. No supplemental oxygen at home. Patient reports that her only change in medication recently was starting tramadol. She notes that she does not normally have high blood pressure, and that she takes losartan for her kidney function. ROS: Patient endorses mild right knee pain, and some nausea yesterday (which is resolved) Patient denies fever, chills, night sweats, dizziness, lightheadedness, headaches, changes in vision, chest pain, chest palpitations, cough, SOB, abdominal pain, vomiting, diarrhea, changes in urinary or bowel habits, burning with urination, dysuria, or numbness or tingling going down the right leg. Manual blood pressure was taken in the left arm at 12 PM (around 2 hours after receiving losartan 25 mg p.o.), and it was 205/85. Allergies Allergy/AdvReac Type Severity Reaction Status Date / Time Penicillins Allergy Severe Hives Verified 02/06/24 05:42 acetaminophen [From Percocet] Allergy Intermediate Confusion Verified 02/06/24 05:42 adhesive tape Allergy Mild Rash Verified 02/06/24 05:42 codeine Allergy Mild Confusion Verified 02/06/24 05:42 irbesartan Allergy Mild Unknown Verified 02/06/24 05:42 oxycodone [From Percocet] Allergy Mild Confusion Verified 02/06/24 05:42 simvastatin [From Zocor] Allergy Mild Cough Verified 02/06/24 05:42 hydrocodone [From Vicodin] AdvReac Mild Rash Verified 02/06/24 05:42 morphine AdvReac Mild Vomiting Verified 02/06/24 05:42 perindopril AdvReac Mild Rash Verified 02/06/24 05:42 sulfamethoxazole AdvReac Mild Nausea Verified 02/06/24 05:42 [From Bactrim] trimethoprim [From Bactrim] AdvReac Mild Nausea Verified 02/06/24 05:42 vancomycin AdvReac Mild Rash Verified 02/06/24 05:42 Home Medications Medication Instructions Recorded Confirmed Type glimepiride 4 mg tablet 4 mg PO QAM 12/20/23 02/06/24 History metformin 500 mg tablet 1,000 mg PO BID 12/20/23 02/06/24 History omega 2-spj-vdp-fish oil 1,200 mg 1 cap PO QPM 12/20/23 02/06/24 History (144 mg-216 mg) capsule (Fish Oil) pravastatin 40 mg tablet 40 mg PO QPM 12/20/23 02/06/24 History Prevagen 10 mg PO QAM 12/23/23 02/06/24 History aspirin 81 mg capsule 81 mg PO QAM 12/23/23 02/06/24 History cholecalciferol (vitamin D3) 25 25 mcg PO QAM 12/23/23 02/06/24 History mcg (1,000 unit) capsule (Vitamin D3) insulin glargine 100 unit/mL 35 unit subcut HS 12/23/23 02/06/24 History subcutaneous solution (Lantus U-100 Insulin) insulin glargine 100 unit/mL 50 unit subcut QAM 12/23/23 02/06/24 History subcutaneous solution (Lantus U-100 Insulin) krill 1 cap PO QAM 12/23/23 02/06/24 History dje-ka4-dpv-wjc-ir5-kxu-astax 1,500 mg-165 mg-67.5 mg capsule (Krill Oil ([place] 3 and 6)) liraglutide 0.6 mg/0.1 mL (18 mg/3 1.8 mg subcut QAM 12/23/23 02/06/24 History mL) subcutaneous pen injector (Victoza 2-Darnlel) vit C-vit B-jgizsj-vezznunm-omega 1 cap PO QAM 12/23/23 02/06/24 History 3 100 mg-15 unit-2 mg-100 mg capsule ibuprofen 100 mg tablet 200 mg PO Q6H PRN Pain 01/04/24 02/06/24 History losartan 25 mg tablet 25 mg PO QPM 01/04/24 02/06/24 History cefadroxil 500 mg capsule 500 mg PO BID 10 days #20 caps 02/07/24 Rx tramadol 50 mg tablet 50 mg PO Q6H PRN pain #30 tabs 02/07/24 Rx Patient History Medical History (Updated 02/08/24 @ 09:32 by Terrell Boykin MD) Nausea and vomiting after administration of anesthetic agent denies needing scop patch Hyperlipidemia Hx of renal calculi last renal stone 01/2021 Hx of nephrolithotomy with removal of calculi (~1971) Diabetes IDDM Surgical History (Updated 02/07/24 @ 11:10 by Luca Gonzalez PA-C) Hx of bilateral cataract extraction 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 > had repeat surgery approx 18 months later for cyst Hx of tubal ligation Hx of bladder repair surgery Hx of vaginal hysterectomy History of lithotripsy History of arthroscopy of both knees Hx of tonsillectomy Social History Smoking Status: Former smoker Tobacco Type: Cigarettes Cigarettes Per Day: 1/2 PPD; Smoking End Date: Quit 2003; Second Hand Exposure: No; Do You Dip or Chew Tobacco: No; Tobacco Cessation Education Requested by Patient: No Hx Alcohol Use: Yes Alcohol type: beer Hx Substance Use: No Preferred Language: Occitan Communication Ability: Effective Meter Inspector Required: No Beliefs That Will Affect Care: None Current Living Situation: Alone Other Information That Helps Us Care for You: No Feels Safe at Home: Yes Safety Concerns: Feels Safe At This Time Assistive Devices: Walker Review of Systems Review of Systems: See HPI above Physical Exam Physical Exam: General: no acute distress; pleasant affect; non-toxic appearing; well- nourished; cooperative; SpO2 98% on RA HEENT: normocephalic, atraumatic; no scleral icterus; PERRLA; moist mucus membrane; vision and hearing grossly intact Neck: supple; trachea midline Skin: warm, dry without signs of tenting; no cyanosis; no rashes, bruising, lesions, or erythema noted CV: chest wall NTP; RRR; S1/S2 normal; no murmurs/rubs/gallops; pulses intact and symmetric at radial, DP, and PT Lungs: no acute respiratory distress; symmetrical chest wall expansion; clear breath sounds across all lung eason w/o adventitious sounds; no wheezing ABD: Soft, NTP; BS present; no rebound/guarding; no distention MSK: no tics or fasciculations; no edema noted in the LEs b/l, nonerythematous; patient demonstrates ability to wiggle toes and plantar flex/dorsiflex ankles against resistance without pain, and with 5/5 strength bilaterally Neuro: A&Ox3; normal mood and affect; fluent speech; no focal deficits; sensation intact and symmetric in the LEs b/l Manual blood pressure was taken in the left arm at 12 PM (around 2 hours after receiving losartan 25 mg p.o.), and it was 205/85. Results & Data Results & Data Vital Signs (Past 12 Hours) Vital Signs Temp Pulse Pulse Resp BP BP Pulse Ox 04/23/24 11:11 36.7 C 79 16 210/82 H 98 02/07/24 08:40 164/68 H 02/07/24 08:38 179/69 H 02/07/24 08:03 36.4 C L 71 18 195/78 H 95 02/07/24 08:00 02/07/24 08:00 182/78 H 140/78 02/07/24 04:00 36.7 C 75 18 163/72 H 97 O2 Del Method 02/07/24 11:11 Room Air 02/07/24 08:40 02/07/24 08:38 02/07/24 08:03 Room Air 02/07/24 08:00 Room Air 02/07/24 08:00 02/07/24 04:00 Room Air Laboratory Results Abnormal lab results 02/06/24 02/06/24 02/06/24 Range/Units 11:43 16:31 21:03 POC Glucose 151 H 178 H 244 H (70-99) mg/dl 02/07/24 02/07/24 Range/Units 07:54 11:29 POC Glucose 123 H 174 H (70-99) mg/dl PG Care Time/CCT Total # of Minutes Spent Total Time Spent with Patient: Total time spent is greater than 50% in coordination of care (as documented) at patient's floor/unit and/or counseling patient: [place] [address] IN/OBS CONSULT LVL 4,60M Patient Type New Medical Decision Making Moderate Complexity Diagnoses Status post right knee replacement Z96.651 Hypertension I10 Hypomagnesemia E83.42 Elevated troponin R79.89 Diabetes E11.9 White coat syndrome with hypertension I10
[2024-02-07 12:21] LABS: Basophils # (auto) 0.02 K/uL (0.00-0.20); Basophils % (auto) 0.2 %; Eosinophils # (auto) 0.01 K/uL (0.00-0.50); Eosinophils % (auto) 0.1 %; Hematocrit (blood only) 33.8 % (37.0-47.0); Hemoglobin 11.5 g/dl (12.0-16.0); Immature Granulocytes # (auto) 0.03 K/uL (0.01-0.20); Immature Granulocytes % (auto) 0.3 %; Lymphocytes # (auto) 2.16 K/uL (1.20-3.40); Lymphocytes % (auto) 23.9 %; Mean Corpuscular Hemoglobin 29.3 pg (25.0-34.0); Mean Platelet Volume 9.5 fL (9.4-12.4); Monocytes # (auto) 0.92 K/uL (0.11-0.59); Monocytes % (auto) 10.2 %; Neutrophils % (auto) 65.3 %; Platelet Count 200 K/uL (130-400); RDW Coefficient of Variation 12.5 % (11.5-14.5); RDW Standard Deviation 39.6 fL (36.4-46.3); Red Blood Count 3.93 M/uL (4.20-5.40); White Blood Count 9.04 K/ul (4.8-10.8)
[2024-02-07 12:41] LABS: Albumin Level 3.8 gm/dl (3.4-5.0); Bilirubin,Total 0.6 mg/dl (0.2-1.0); Calcium 9.1 mg/dl (8.6-10.3); Magnesium 1.4 mg/dl (1.7-2.4); Potassium 3.5 mmol/L (3.5-5.1)
[2024-02-07 12:47] LABS: Albumin Globulin Ratio 1.4 (0.9-2); BUN Creatinine Ratio 21.1 (10-20); Creatinine Clr Calc Pharmacy 41.3 ml/min; Est GFR (African American) 53.7 ml/min; Est GFR (Non-African American) 46.3 ml/min; Globulin 2.8 gm/dl (2.5-4.0); Total Protein 6.6 gm/dl (6.0-8.3)
[2024-02-07 13:00] LABS: Troponin I High Sensitivity 36.4 pg/ml (0-14)
[2024-02-07] MEDS: hydrALAZINE HCL 20 MG/ML VIAL IV PRN ×2 (15:37→22:00)
[2024-02-07] MEDS: POTASSIUM CHLORIDE / WTR 10 MEQ/100 ML PLCT IV ONE (15:38)
[2024-02-07] MEDS: MAGNESIUM SULFATE / D5W 1 GM/100 ML BAG IV SCH (15:38)
[2024-02-07] MEDS ORDERED: hydrALAZINE HCL 20 MG/ML VIAL IV PRN (19:56)
[2024-02-07] MEDS ORDERED: GLUCAGON FOR INJ 1 MG VIAL SQ PRN (22:46)
[2024-02-07] MEDS ORDERED: GLUCOSE 10 TAB/TUBE PO PRN (22:46)
[2024-02-07] MEDS ORDERED: DEXTROSE 50% 50 ML SYRINGE IV PRN (22:46)
[2024-02-07] MEDS ORDERED: CARBOHYDRATES FOR HYPOGLYCEMIA PO PRN (22:46)
[2024-02-08 08:05] LABS: Basophils # (auto) 0.03 K/uL (0.00-0.20); Basophils % (auto) 0.4 %; Eosinophils # (auto) 0.02 K/uL (0.00-0.50); Eosinophils % (auto) 0.2 %; Hematocrit (blood only) 34.7 % (37.0-47.0); Hemoglobin 11.7 g/dl (12.0-16.0); Immature Granulocytes # (auto) 0.04 K/uL (0.01-0.20); Immature Granulocytes % (auto) 0.5 %; Lymphocytes # (auto) 1.71 K/uL (1.20-3.40); Lymphocytes % (auto) 20.9 %; Mean Corpuscular Hgb Conc 33.7 g/dL (32.0-36.0); Mean Corpuscular Volume 85.9 fL (80.0-100.0); Mean Platelet Volume 9.9 fL (9.4-12.4); Monocytes # (auto) 0.83 K/uL (0.11-0.59); Monocytes % (auto) 10.1 %; Neutrophils # (auto) 5.56 K/uL (1.40-6.50); Neutrophils % (auto) 67.9 %; Platelet Count 229 K/uL (130-400); RDW Coefficient of Variation 12.7 % (11.5-14.5); Red Blood Count 4.04 M/uL (4.20-5.40); White Blood Count 8.19 K/ul (4.8-10.8)
[2024-02-08 08:41] LABS: BUN Creatinine Ratio 24.7 (10-20); Calcium 9.2 mg/dl (8.6-10.3); Creatinine Clr Calc Pharmacy 52.9 ml/min; Est GFR (African American) 72.5 ml/min; Est GFR (Non-African American) 62.5 ml/min; Magnesium 1.4 mg/dl (1.7-2.4); Potassium 4.2 mmol/L (3.5-5.1)
[2024-02-08] MEDS: LANTUS PER UNIT CHARGE SC SCH (08:53)
[2024-02-08] MEDS: MAGNESIUM SULFATE / D5W 1 GM/100 ML BAG IV SCH (09:43)
--- NOTE | 2024-02-08 09:54 | Orthopedic Progress Note ---
Date of Service February 08, 2024 Assessment & Plan (1) Status post right knee replacement: Overall, she is doing quite well today with good pain control to the right knee. She has been participating well with physical therapy doing ambulation and range of motion exercises. She is on aspirin for DVT prophylaxis. At this point, we are currently awaiting for the hospitalist service to state that she is medically cleared for discharged. From an orthopedic standpoint, she can be discharged when medically stable. Anticipated discharge will be today pending with the hospitalist service states. She will follow-up with orthopedics in 2 weeks for postoperative management. Subjective . Sommer was seen and evaluated this morning resting comfortably in no apparent distress. She notes that her pain is well-controlled to the right knee. She did stay an alert night due to unknown etiology of hypertension. She was having a couple hypertensive blood pressure readings today with her most recent being in the 180s systolic. Hospitalist service is following. She has been working with physical therapy and also ambulating around the hallways with no significant issues. She denies any other concerns today. Review of Systems All systems reviewed & are unremarkable except as noted in HPI & below. Physical Exam .On physical evaluation of the right knee, dressings are clean, dry, intact. Her leg is held in full extension. She has active plantarflexion dorsiflexion of the right ankle. +2 DP and PT pulses. Less than 2-second capillary refill. Normal sensation. Neurovascular intact. Results & Data Results & Data Laboratory Results . Diagnostic Findings . PG Care Time/CCT Total # of Minutes Spent Total Time Spent with Patient: Total time spent is greater than 50% in coordination of care (as documented) at patient's floor/unit and/or counseling patient: Coding Level of Care Code 53695 Post Operative Follow-Up Diagnoses Status post right knee replacement Z96.651
--- NOTE | 2024-02-08 12:26 | Pharmacy Report ---
Pharmacy Glycemic Short Note 2 - Date of Service February 08, 2024 - Glycemic Short BSG Results (Last 24 hours): 02/07/24 02/07/24 02/07/24 12:03 16:41 21:03 Glucose 175 H POC Glucose 177 H 270 H 02/08/24 02/08/24 02/08/24 07:17 07:20 11:46 Glucose 238 H POC Glucose 240 H 246 H OUTPATIENT ANTIDIABETIC REGIMEN: * Lantus 50 units SQ QAM * Lantus 35 units SQ HS * Victoza 1.8mg SQ daily * metformin ER 1000mg BID * glimepiride 4mg QAM * HbA1c 7.6% (01/04/24) ASSESSMENT: 02/07 * Blood sugars well controlled most of yesterday, but annie to 270 last night and have remained 240, 246mg/dl today, despite increasing Lantus this AM and tightening CR. Will tighten CF/CR further for lunch. Patient is snacking and does take 85 units of Lantus/day at home, so will increase basal further. * POD 2, patient cleared for DC by surgery, but hospitalist kept patient last night to monitor hypertension overnight, and trend troponin. Remains hypertensive today. 02/05 * Sommer is a 79YOF admitted status post right total knee arthroplasty and a history of type 2 diabetes mellitus. Pharmacy has been consulted to assist with glycemic management while inpatient. * Preoperative BSG in goal range, dexamethasone 10mg IV given preoperatively, last dose Lantus given last night prior to admission, will give approximately 0.3units/kg basal insulin to cover steroids. Basal scale added between to allow for up to a weight based stress of 3 daily. * NovoLog initiated at a weight based stress of 3, may need loosened as steroid effects wear off. PLAN FOR INPATIENT GLYCEMIC CONTROL: * Hold outpatient diabetes medications * Basal insulin * Lantus 25 units this AM, 20-40 units SQ HS tonight, further dosing tomorrow morning * Bolus insulin * NovoLog per scale ACHS or Q6hrs while NPO * Goal Range: Low 110 mg/dL - High 140 mg/dL * Correction Factor: 12 mg/dL/unit * Nutritional / Prandial insulin per carb ratio of 1 unit per 3 grams CHO consumed
--- NOTE | 2024-02-08 12:52 | Hospitalist Progress Note ---
Date of Service February 08, 2024 Assessment & Plan (1) Status post right knee replacement: Plan: - Patient had right total knee arthroplasty on 02/05/[address] Sands. - Hospital medicine was consulted on 02/06 due to acute onset of postoperative hypertension at 210/82. - Perioperative antibiotics, pain control, DVT prophylaxis, fluids, activity level, discharge planning per the primary team. (2) Hypertension: Plan: - Patient normally takes losartan 25 mg p.o. QPM, but she notes this is for her kidneys - Hydralazine 5 mg IV q4h as needed for SBP >200 mmHg - Unclear etiology; given isolated systolic hypertension, normal blood pressures at home per the patient, this is most likely secondary to a combination of stress/pain and white coat syndrome. - I do not recommend an increase in at home losartan or new blood pressure medication at this time. - Transthoracic echocardiogram 02/08/2024 revealed ejection fraction of 60-65%, no regional wall abnormalities noted, left ventricular systolic function normal, mild concentric left ventricular hypertrophy. (3) Hypomagnesemia: Plan: Mag low at 1.4 on admission, repleted Magnesium sulfate 1 g x 2 given on 02/06 and 02/07 (4) Elevated troponin: Plan: Troponin elevated at 36.4-->50.3 Clinically, patient denied chest pressure, headache, chest palpitations, or pleuritic CP Most likely secondary to demand ischemia (5) Diabetes: Plan: Last A1c 7.6% on 01/04/2024 Plan Patient is stable for discharge from a medical perspective. Hospitalist team will sign off at this time. CODE STATUS: Full code Admission and Anticipated Discharge Date Admission Date: February 06, 2024 Subjective Patient seen and evaluated at bedside. She had a right total knee arthroplasty with Dr. Sands on 02/06/2024. She reports she is feeling sleepy, but otherwise well. She states she has been up walking today and her pain is well controlled with medication. We discussed her elevated blood pressure readings while in the hospital, and patient reports her blood pressure at home ranges 130-140/60-70. Given her elevated BP while inpatient has been isolated to systolic, and normal blood pressures at home, it is most likely due to a combination of anxiety/pain and white coat hypertension. I do not feel that the patient needs an increase in her losartan or a new blood pressure medication at this time. Patient denies headache, change in vision, lightheadedness, dizziness, chest pain, shortness of breath. She has no complaints at this time. Patient is stable for discharge from a medical perspective. Physical Exam Physical Exam: General: No acute distress, nondiaphoretic, well-developed, well-nourished. Skin: The skin was without rashes, erythema, edema, or bruising. Cardiac: Regular rate and rhythm without murmurs gallops or rubs. Pulm: Clear to auscultation bilaterally without wheezes, rales or rhonchi. No retractions or accessory muscle use. Abdominal: Positive bowel sounds x 4. Soft, nontender, without masses or organomegaly. No guarding or rebound tenderness. Neuro: A&O x3. No focal neurological deficits. Extremities: No edema noted in the LEs b/l, nonerythematous; patient demonstrates ability to wiggle toes and plantar flex/dorsiflex ankles against resistance without pain, and with 5/5 strength bilaterally. Right knee dressing intact, clean, dry. Neuro: A&Ox3; normal mood and affect; fluent speech; no focal deficits; sensation intact and symmetric in the LEs b/l Results & Data Results & Data Vital Signs (Past 12 Hours) Vital Signs Temp Pulse Resp BP BP Pulse Ox O2 Del Method 02/08/24 12:07 79 184/81 H 02/08/24 09:41 83 159/77 H 02/08/24 08:01 36.6 C 80 16 183/73 H 95 Room Air 02/08/24 05:13 162/78 H 02/08/24 01:52 179/97 H 179/93 H Laboratory Results Reviewed CBC Reviewed chemistries Reviewed multiple blood pressure readings Reviewed echocardiogram Diagnostic Findings Transthoracic echocardiogram 02/08/2024: Left ventricular systolic function is normal. No regional wall abnormalities noted. There is mild concentric left ventricular hypertrophy. Ejection fraction= 60-65%. No prior study for comparison. PG Care Time/CCT Total # of Minutes Spent Total Time Spent with Patient: Total time spent is greater than 50% in coordination of care (as documented) at patient's floor/unit and/or counseling patient: Coding Level of Care Code 71120 SUB INP/OBS CARE 2/35MIN Diagnoses Status post right knee replacement Z96.651 Hypertension I10 Hypomagnesemia E83.42 Elevated troponin R79.89 Diabetes E11.9
--- NOTE | 2024-02-08 15:19 | XCELERA ---
[id number]
--- NOTE | 2024-02-08 16:18 | Electrocardiogram Report ---
Test Reason : Blood Pressure : / mmHG Vent. Rate : 088 BPM Atrial Rate : 088 BPM P-R Int : 172 ms QRS Dur : 128 ms QT Int : 396 ms P-R-T Axes : 055 -09 -17 degrees QTc Int : 479 ms Normal sinus rhythm Non-specific intra-ventricular conduction block Abnormal ECG When compared with ECG of 04-JAN-2024 11:03, T wave inversion now evident in Inferior leads Confirmed by Temo Mathews ([id number]) on 02/08/2024 4:18:13 PM Referred By: Josh Sands Confirmed By:Temo Mathews
--- NOTE | 2024-02-09 12:03 | Discharge Summary ---
Date of Service February 08, 2024 Admission HPI (Per Admitting) Sommer is a pleasant 78-year-old female who has been dealing with chronic increasing bilateral knee pain. Her biggest complaint is getting off her kitchen floors. She also has pain going up and down stairs. Most of her pain is laterally. She has noticed an extensive valgus deformity of her right knee. X-rays clinical examination been diagnostic for advanced osteoarthritis of the right knee. After failing conservative treatment, she has elected proceed with a right total knee arthroplasty. Admission Exam (Per Admitting) On physical examination the right knee, she has a valgus deformity. She has tenderness palpation of the distal lateral femoral condyle and over the lateral joint line.. Principal Diagnosis Same as "Discharge Diagnosis" noted below under Discharge Instructions. Discharge Exam .On physical evaluation of the right knee, dressings are clean, dry, intact. Her leg is held in full extension. She has active plantarflexion dorsiflexion of the right ankle. +2 DP and PT pulses. Less than 2-second capillary refill. Normal sensation. Neurovascular intact. Discharge Data Consultations 02/07/24 11:33 Consult Hospitalist Routine Procedures Performed Operation Date: 02/06/24 07:15 Actual Procedures p Right Total Knee Arthroplasty(Right) - Josh Sands DO Ordered Studies 02/06/24 05:00 US - OR guided needle placemen Routine Hospital Course (1) Status post right knee replacement: On February 06, 2024 Sommer arrived at [facility] underwent a right total knee arthroplasty performed by Dr. Sands with no complications. She had a spinal anesthetic. Postoperatively, she was started on aspirin for DVT prophylaxis and transferred to the general orthopedic floor in stable condition. On postoperative day #1, her pain was well-controlled. She was having spells of hypertension throughout the morning. Due to the ongoing increasing for systolic blood pressure reading, hospitalist consultation was obtained. She did participate well with physical therapy working on ambulation and range of motion exercises. At this point, the hospitalist service wanted to run some blood work and monitor her for another day. She agreed to 1 more stay. No other significant events occurred on this day. On postoperative day #2, her pain was well-controlled. She again had an increase in systolic blood pressure but it was down from the previous days. She did disclose to the hospitalist service that she does usually run a normal blood pressure when she is at home. The hospitalist service concluded that this is an unclear etiology with most likely her increased systolic blood pressure is secondary to a combination of stress less pain as well as whitecoat syndrome. They recommended no changes in her blood pressure medication upon discharge. They did then clear her medically for discharge. She participated well with physical therapy working on ambulation and range of motion exercises. She was then discharged home in stable condition. She will follow-up with orthopedics in 2 weeks for postoperative management. PG Care Time/CCT Total # of Minutes Spent Total Time Spent with Patient: Total time spent is greater than 50% in coordination of care (as documented) at patient's floor/unit and/or counseling patient: Discharge Plan Discharge Items Patient Disposition: Home - Home Health Services Reason For Visit: Degenerative Joint Disease Right Knee Discharge Diagnosis: Same Activity: Per Instructions section Non-emergency contact: Surgeon Call non-emergency contact if: your temperature is above 101.5, your wound has increased redness, your wound has increased drainage and your wound pain has increased Follow-up/Referrals: April Conte D.O. [Primary Care Provider] - 02/16/24 8:30 am Diet: Regular Addtl Attending Provider Instructions: Activity and Therapy Recommendations: * If you are using [facility] then therapy will be provided at your home until they feel you have accomplished all of your goals. * If you are using [facility] then Physical Therapy will be provided until they feel you are ready to start Outpatient Physical Therapy. * If you are not using home therapy then Outpatient Physical Therapy should start about 3-5 days from your day of surgery. Therapy will last about 6-10 weeks * It is important not to put a pillow under your knee when you are relaxing or sleeping. It is just as important to make sure you are getting your knee perfectly straight as it is to regain your knee bend. * You were shown a series of exercises in the hospital. Do these exercises three times each day including the exercises you were shown in physical therapy. * Get up and walk several times each day. For the first four weeks, try not to stand or walk for more than one hour at a time. If you do stand or walk for more than one hour, you will not hurt anything, but your leg will likely swell. * As you feel comfortable, you may change from the walker or crutches to a cane and then to independent walking. Medications: * Narcotic You will likely be sent home from the hospital with a prescription for the narcotic pain medication that worked best throughout your stay. * Cefadroxil -take the antibiotic twice a day for 10 days to help prevent infec tion. * Aspirin Most patients will be required to take Aspirin 81mg twice a day for 6 weeks after surgery. This is obtained [id number] and a prescription is not necessary. * Other medications may be prescribed for specific circumstances. If you have any questions, please call the office at . * Resume previous home medications unless otherwise instructed TEDs/Elastic Stockings: The white elastic stockings help limit swelling and prevent blood clots from forming in your legs.~ The more you wear them, the more they work. Wear them for six weeks. Dressing Care: The dressing can be changed after physical therapy on postop day #1. Daily dry dressing changes for a few days, especially if the incision is still draining some. If the incision is not draining then you may leave the kika open to air. If there is a little bit of drainage or if the kika are getting stuck on your clothing then cover the incision with a dry dressing. The kika will be removed at your 2 week follow-up appointment. Showering: You may shower 5 days from the day of surgery as long as the incision is no longer draining. You may shower with the kika exposed. Let soapy water run over the kika and pat them dry. Do not scrub or soak the incision. Things To Watch For: * Drainage from the incision site that occurs more than one week after your surgery. * Increased redness at the incision site. * Fever above 102 degrees Fahrenheit. * Unusual chest pain or shortness of breath. * Call [facility] at with any of the above problems Follow-Up Visit: Follow-up with Dr. Sands's PA (Josh Becerra) 2-3 weeks after your day of surgery. He will remove your kika and answer any questions. If you have any additional questions or concerns, Dr Sands is usually in the office at the same time and will be available An appointment was probably scheduled when you signed-up for surgery in the office. If you have any questions call Office Instructions: More detailed instructions as well as Frequently Asked Questions were provided in a folder by our office when you signed-up for surgery. Please review these instructions when you get home. If you have any further questions or concerns, please feel free to call the office at [phone] Pending Studies at Discharge: No Stand-Alone Forms: My [facility], Smoking Cessation Medications and DC Order Prescriptions: New aspirin 81 mg Tablet,Delayed Release (Dr/Ec) 81 mg PO BID 42 Days Qty: 0 0RF tramadol 50 mg Tablet 50 mg PO Q6H PRN (Reason: pain) Qty: 30 0RF cefadroxil 500 mg capsule 500 mg PO BID 10 Days Qty: 20 0RF Continued metformin 500 mg tablet 1,000 mg PO BID omega 1-kmn-jls-fish oil [Fish Oil] 1,200 (144-216) mg capsule 1 cap PO QPM glimepiride 4 mg tablet 4 mg PO QAM pravastatin 40 mg tablet 40 mg PO QPM insulin glargine [Lantus U-100 Insulin] 100 unit/mL Solution 50 unit SUBCUT QAM insulin glargine [Lantus U-100 Insulin] 100 unit/mL Solution 35 unit SUBCUT HS cholecalciferol (vitamin D3) [Vitamin D3] 25 mcg (1,000 unit) Capsule 25 mcg PO QAM vit C-vit R-awjqho-ycn-om-3 [id number] as-vtim-ba-mg Capsule 1 cap PO QAM Victoza 2-Darnell 0.6 mg/0.1 mL (18 mg/3 mL) Pen Injector 1.8 mg SUBCUT QAM Krill Oil ([place] 3 and 6) 1,500-165-67.5 mg Capsule 1 cap PO QAM Prevagen 1 unit 10 mg PO QAM losartan 25 mg Tablet 25 mg PO QPM Discontinued aspirin 81 mg Capsule 81 mg PO QAM ibuprofen 100 mg Tablet 200 mg PO Q6H PRN (Reason: Pain) Krames/Other Patient Handouts: Managing Type 2 Diabetes Admission Data Admit Date/Time: 02/06/24 08:28 Attending Provider: Josh Sands Admit Provider: Josh Sands Primary Care Provider: April Conte Other Providers: [facility]; [facility]; Terrell Aguiar Other Interventions: Discharge Summary Assessment (RN) Last Done: 02/08/24 14:13
== END 2024-02-08 14:39 | disposition home health service (06) ==
LOC: ASU 05:11 → 3W 05:11

== ENCOUNTER 2024-10-22 09:17 | Observation (INO) ==
--- NOTE | 2024-09-26 12:31 | PAT Medication Instructions ---
Medication Instructions Date of Service September 26, 2024 Home Medications Medication Instructions Recorded tramadol 50 mg tablet 50 mg PO Q6H PRN pain #30 tabs 02/07/24 ondansetron HCl 4 mg tablet 4 mg PO Q8H PRN nausea and 02/15/24 vomiting #20 tabs glimepiride 4 mg tablet 4 mg PO QAM metformin 500 mg tablet 1,000 mg PO BID omega 3-ssb-hja-fish oil 1,200 mg (144 mg-216 mg) capsule (Fish Oil) 1 cap PO QPM pravastatin 40 mg tablet 40 mg PO QPM Prevagen 10 mg PO QAM cholecalciferol (vitamin D3) 25 mcg (1,000 unit) capsule (Vitamin D3) 25 mcg PO QAM insulin glargine 100 unit/mL subcutaneous solution (Lantus U-100 Insulin) 22 unit subcut HS insulin glargine 100 unit/mL subcutaneous solution (Lantus U-100 Insulin) 40 unit subcut QAM krill nve-cn9-qkc-scm-mk4-zzr-astax 1,500 mg-165 mg-67.5 mg capsule (Krill Oil ([place] 3 and 6)) 1 cap PO QAM vit C-vit G-sducrc-qbfsnblc-omega 3 100 mg-15 unit-2 mg-100 mg capsule 1 cap PO QAM tramadol 50 mg tablet 50 mg PO Q6H PRN pain ondansetron HCl 4 mg tablet 4 mg PO Q8H PRN nausea and vomiting aspirin 81 mg tablet 81 mg PO QPM diphenhydramine HCl 25 mg capsule (Benadryl) 25 mg PO HS PRN prn exenatide 5 mcg/dose (250 mcg/mL)1.2 mL subcutaneous pen injector ([place]) 5 mcg subcut BID ibuprofen 200 mg tablet (Advil) 200 mg PO Q6H PRN prn losartan 100 mg tablet 100 mg PO QPM ASK your surgeon for instructions ibuprofen 200 mg tablet (Advil) 200 mg PO Q6H PRN prn ASK your prescriber and surgeon aspirin 81 mg tablet 81 mg PO QPM STOP taking 2 weeks before surgery (or as soon as possible if surgery is within 2 weeks) omega 7-uoz-gqy-fish oil 1,200 mg (144 mg-216 mg) capsule (Fish Oil) 1 cap PO QPM Prevagen 10 mg PO QAM krill edy-fo4-ajm-fsx-sc3-jai-astax 1,500 mg-165 mg-67.5 mg capsule (Krill Oil ([place] 3 and 6)) 1 cap PO QAM vit C-vit F-vurmoh-bjfghcpn-omega 3 100 mg-15 unit-2 mg-100 mg capsule 1 cap PO QAM STOP 7 days prior to surgery exenatide 5 mcg/dose (250 mcg/mL)1.2 mL subcutaneous pen injector ([place]) 5 mcg subcut BID DO NOT take the morning of surgery glimepiride 4 mg tablet 4 mg PO QAM metformin 500 mg tablet 1,000 mg PO BID cholecalciferol (vitamin D3) 25 mcg (1,000 unit) capsule (Vitamin D3) 25 mcg PO QAM Take morning of surgery With a small sip of water, OTHERWISE NOTHING TO EAT OR DRINK AFTER MIDNIGHT: tramadol 50 mg tablet 50 mg PO Q6H PRN pain (if needed) ondansetron HCl 4 mg tablet 4 mg PO Q8H PRN nausea and vomiting (if needed) Take evening before surgery metformin 500 mg tablet 1,000 mg PO BID pravastatin 40 mg tablet 40 mg PO QPM insulin glargine 100 unit/mL subcutaneous solution (Lantus U-100 Insulin) 22 unit subcut HS tramadol 50 mg tablet 50 mg PO Q6H PRN pain (if needed) ondansetron HCl 4 mg tablet 4 mg PO Q8H PRN nausea and vomiting (if needed) diphenhydramine HCl 25 mg capsule (Benadryl) 25 mg PO HS PRN prn (if needed) losartan 100 mg tablet 100 mg PO QPM Insulin Dependent Diabetic Patients * Test your blood sugar the morning of surgery * If Blood Sugar is GREATER THAN 150, take HALF of your regular dose of: insulin glargine 100 unit/mL subcutaneous solution (Lantus U-100 Insulin) > Take 20 units * If Blood Sugar is LESS THAN 150, DO NOT TAKE ANY: insulin glargine 100 unit/mL subcutaneous solution (Lantus U-100 Insulin) Other Notes If you have any questions please call us at [phone] or [phone] or [phone] or [phone]
--- NOTE | 2024-10-03 10:05 | Anesthesiology Consultation ---
Date of Service October 03, 2024 Assessment & Plan (1) Encounter for pre-operative examination: - Check BSG DOS - Infectious disease screening: Per assessment on 10/03/24- No known recent infectious disease contacts or current infectious disease symptoms. - Outpatient joint assessment: Pt currently scheduled for inpatient pathway. If surgeon requests review for outpatient joint pathway, patient is not recommended candidate for outpatient joint program from anesthesia standpoint based on available information. - Right TKA (02/06/24): SAB at L4-5 (1 attempt) + regional at [facility]. Per hospitalist note 02/08/24, "Patient had right total knee arthroplasty on 02/05/[address] Sands.. Hospital medicine was consulted on 02/06 due to acute onset of postoperative hypertension at 210/82... Patient normally takes losartan 25 mg p.o. QPM, but she notes this is for her kidneys.. Hydralazine 5 mg IV q4h as needed for SBP >200 mmHg.. Unclear etiology; given isolated systolic hypertension, normal blood pressures at home per the patient, this is most likely secondary to a combination of stress/pain and white coat syndrome.. I do not recommend an increase in at home losartan or new blood pressure medication at this time.. Transthoracic echocardiogram 02/08/2024 revealed ejection fraction of 60-65%, no regional wall abnormalities noted, left ventricular systolic function normal, mild concentric left ventricular hypertrophy.. Mag low at 1.4 on admission, repleted.. Magnesium sulfate 1 g x 2 given on 02/06 and 02/07.. Troponin elevated at 36.4-->50.3.. Clinically, patient denied chest pressure, headache, chest palpitations, or pleuritic CP.. Most likely secondary to demand ischemia" > Reviewed with Dr. Still. Nothing further needed preoperatively from his perspective. - PCP visit (08/27/24): "BP 142/80.. Essential (primary) hypertension.. Medications remain the same. low sodium diet.. Chart Review Chart Review: Acceptable Risk for Surgery and Patient seen in Pre Admission Testing Teaching & Discussion Pre-Anesthesia Teaching/Discussion Notes: Instructed NPO after midnight before surgery,except medications with 15 cc of water. Medication instructions provided according to the PAT guidelines. History Surgery Operation Date: 10/22/24 11:00 Proposed Procedures p Left Total Knee Arthroplasty - Josh Sands, DO Height/Weight Height: 5 ft 4 in Weight: 73.4 kg Allergies Allergy/AdvReac Type Severity Reaction Status Date / Time Penicillins Allergy Severe Hives Verified 09/26/24 10:48 acetaminophen [From Percocet] Allergy Intermediate Confusion Verified 09/26/24 10:48 adhesive tape Allergy Mild Rash Verified 09/26/24 10:48 codeine Allergy Mild Confusion Verified 09/26/24 10:48 irbesartan Allergy Mild Unknown Verified 09/26/24 10:48 nickel Allergy Mild Itching Verified 09/26/24 10:48 oxycodone [From Percocet] Allergy Mild Confusion Verified 09/26/24 10:48 simvastatin [From Zocor] Allergy Mild Cough Verified 09/26/24 10:48 hydrocodone [From Vicodin] AdvReac Mild Rash Verified 09/26/24 10:48 morphine AdvReac Mild Vomiting Verified 09/26/24 10:48 perindopril AdvReac Mild Rash Verified 09/26/24 10:48 sulfamethoxazole AdvReac Mild Nausea Verified 09/26/24 10:48 [From Bactrim] trimethoprim [From Bactrim] AdvReac Mild Nausea Verified 09/26/24 10:48 vancomycin AdvReac Mild Rash Verified 09/26/24 10:48 Medications Home Medications Medication Instructions Recorded Confirmed Last Taken glimepiride 4 mg tablet 4 mg PO QAM 12/20/23 09/26/24 02/05/24 08:00 metformin 500 mg tablet 1,000 mg PO BID 12/20/23 09/26/24 02/05/24 21:00 omega 0-jwu-yhs-fish oil 1,200 mg 1 cap PO QPM 12/20/23 09/26/24 01/26/24 08:00 (144 mg-216 mg) capsule (Fish Oil) pravastatin 40 mg tablet 40 mg PO QPM 12/20/23 09/26/24 02/05/24 21:00 Prevagen 10 mg PO QAM 12/23/23 09/26/24 01/26/24 08:00 cholecalciferol (vitamin D3) 25 25 mcg PO QAM 12/23/23 09/26/24 01/26/24 08:00 mcg (1,000 unit) capsule (Vitamin D3) insulin glargine 100 unit/mL 22 unit subcut HS 12/23/23 09/26/24 02/05/24 21:00 subcutaneous solution (Lantus U-100 Insulin) insulin glargine 100 unit/mL 40 unit subcut QAM 12/23/23 09/26/24 02/05/24 08:00 subcutaneous solution (Lantus U-100 Insulin) krill 1 cap PO QAM 12/23/23 09/26/24 01/26/24 08:00 msp-jf9-znn-vnm-pr3-gdu-astax 1,500 mg-165 mg-67.5 mg capsule (Krill Oil ([place] 3 and 6)) vit C-vit R-rkxuhm-ulsgjtpk-omega 1 cap PO QAM 12/23/23 09/26/24 01/26/24 08:00 3 100 mg-15 unit-2 mg-100 mg capsule tramadol 50 mg tablet 50 mg PO Q6H PRN pain #30 tabs 02/07/24 09/26/24 Unknown ondansetron HCl 4 mg tablet 4 mg PO Q8H PRN nausea and 02/15/24 09/26/24 Unknown vomiting #20 tabs aspirin 81 mg tablet 81 mg PO QPM 09/26/24 09/26/24 Unknown diphenhydramine HCl 25 mg capsule 25 mg PO HS PRN prn 09/26/24 09/26/24 Unknown (Benadryl) exenatide 5 mcg/dose (250 5 mcg subcut BID 09/26/24 09/26/24 Unknown mcg/mL)1.2 mL subcutaneous pen injector (Byetta) ibuprofen 200 mg tablet (Advil) 200 mg PO Q6H PRN prn 09/26/24 09/26/24 Unknown losartan 100 mg tablet 100 mg PO QPM 09/26/24 09/26/24 Unknown Past Medical History Medical History Diabetes IDDM Hx of renal calculi Hyperlipidemia Hypertension + white coat syndrome Osteoarthritis Knees Exercise / Class Metabolic Activity III < 4 Walking/Shop/Light housework Past Surgical History Surgical History History of anesthesia reaction difficulty waking History of arthroplasty of right knee Right TKA (02/06/24): SAB at L4-5 (1 attempt) + regional at [facility]. Per hospitalist note 02/08/24, "Patient had right total knee arthroplasty on with Dr. Sands.. Hospital medicine was consulted on 02/06 due to acute onset of postoperative hypertension at /82... Patient normally takes losartan 25 mg p.o. QPM, but she notes this is for her kidneys.. Hydralazine 5 mg IV q4h as needed for SBP >200 mmHg.. Unclear etiology; given isolated systolic hypertension, normal blood pressures at home per the patient, this is most likely secondary to a combination of stress/pain and white coat syndrome.. I do not recommend an increase in at home losartan or new blood pressure medication at this time.. Transthoracic echocardiogram 02/08/2024 revealed ejection fraction of 60-65%, no regional wall abnormalities noted, left ventricular systolic function normal, mild concentric left ventricular hypertrophy.. Mag low at 1.4 on admission, repleted.. Magnesium sulfate 1 g x 2 given on 02/06 and 02/07.. Troponin elevated at 36.4-->50.3.. Clinically, patient denied chest pressure, headache, chest palpitations, or pleuritic CP.. Most likely secondary to demand ischemia" History of arthroscopy of both knees History of lithotripsy History of right mastoidectomy R/t tumor ("benign"), had repeat surgery approximately 18 months later for cyst Hx of bilateral cataract extraction Hx of bladder repair surgery Hx of nephrolithotomy with removal of calculi (~1971) Hx of tonsillectomy Hx of tubal ligation Hx of vaginal hysterectomy Nausea and vomiting after administration of anesthetic agent * Right TKA (02/06/24): SAB at L4-5 (1 attempt) + regional at [facility]. Per hospitalist note 02/08/24, "Patient had right total knee arthroplasty on 02/05/[address] Sands.. Hospital medicine was consulted on 02/06 due to acute onset of postoperative hypertension at /82... Patient normally takes losartan 25 mg p.o. QPM, but she notes this is for her kidneys.. Hydralazine 5 mg IV q4h as needed for SBP >200 mmHg.. Unclear etiology; given isolated systolic hypertension, normal blood pressures at home per the patient, this is most likely secondary to a combination of stress/pain and white coat syndrome.. I do not recommend an increase in at home losartan or new blood pressure medication at this time.. Transthoracic echocardiogram 02/08/2024 revealed ejection fraction of 60-65%, no regional wall abnormalities noted, left ventricular systolic function normal, mild concentric left ventricular hypertrophy.. Mag low at 1.4 on admission, repleted.. Magnesium sulfate 1 g x 2 given on 02/06 and 02/07.. Troponin elevated at 36.4-->50.3.. Clinically, patient denied chest pressure, headache, chest palpitations, or pleuritic CP.. Most likely secondary to demand ischemia" Past Anesthesia History No Family Hx of Anesthesia Complications and Other (Slow to wake") History of PONV History of PONV and Hx of Motion Sickness Social History Smoking Status: Former smoker Do You Dip or Chew Tobacco: No Smoking End Date: 2003 (Hx 10/18 PPD) Hx Alcohol Use: No Hx Substance Use: No substance use type: does not use Review of Systems Patient denies chest pain, shortness of breath, dyspnea on exertion, fever, chills, cough, wheezing, palpitations. Physical Exam Vital Signs BP 150/80 P 71 TEMP 98.3 SP02 100%RA RESP 16 Physical Full cervical extension range of motion. Full TMJ range of motion. TMD 3 finger breaths Mallampati Score III Dentition: upper full denture, lower front root canal repair, 9 remaining lower teeth Lungs: clear throughout to auscultation Cardiac: regular rate and rhythm, faint systolic murmur Spine: normal Carotid arteries: negative bruit Extremities: no LE edema Lab Results Anesthesia Preop Results Results Anesthesia Widget: WBC 5.91 K/ul (4.8-10.8) 10/03/24 Hgb 11.9 g/dl (12.0-16.0) L 10/03/24 Hct 36.2 % (37.0-47.0) L 10/03/24 Plt 198 K/uL (130-400) 10/03/24 Na 134 mmol/L (136-145) L 10/03/24 K 4.6 mmol/L (3.5-5.1) 10/03/24 Cl 103 mmol/L (98-107) 10/03/24 CO2 25 mmol/L (21-32) 10/03/24 BUN 14 mg/dl (6-23) 10/03/24 Creat 0.88 mg/dl (0.6-1.2) 10/03/24 Glucose Level 105 mg/dl (70-99(Fasting)) H 10/03/24 PT 11.1 Seconds (9.0-12.0) 10/03/24 PTT 30 Seconds (21-31) 10/03/24 INR 1.0 (0.9-1.1) 10/03/24 HA1c 7.0 % (4.5-5.6) H 10/03/24 Blood Type A Positive 10/03/24 Antibody Screen NEGATIVE 10/03/24 Testing Electrocardiogram Date: 10/03/24 NSR at 66bpm. LVH with QRS widening (R in aVL, [place] product). No significant change compared to 02/07/24 per bit sharpener comparison. Chest X-Ray Date: 01/04/24 FINDINGS: No lines and tubes are seen. Calcified aortic knob is seen. The lungs are clear. No evidence of pleural effusion or pneumothorax. IMPRESSION: No acute chest disease. Echocardiogram Date: 02/08/24 EF 60-65%. No regional wall motion abnormality. Mild concentric LVH. No significant valvular disease.
--- NOTE | 2024-10-18 06:59 | History & Physical Report ---
Date of Service October 18, 2024 Assessment & Plan (1) Osteoarthritis of left knee: We will proceed with a left total knee arthroplasty. Postoperatively she will be started on aspirin for DVT prophylaxis and kept overnight in the hospital for postop medical management. She plans to have the hospital set up home health for discharge. History of Present Illness Chief Complaint: Osteoarthritis of the left knee. Primary Care Provider: April Dg Novoa is a pleasant 79-year-old female who we did a right knee replacement on in January 2024. She has done very well with that. Unfortunately, she is now complaining of left knee pain. She has known arthritis of her left knee. She is really struggling with the valgus deformity. After failed conservative tr eatment, she has elected to proceed with a left total knee arthroplasty. Allergies Allergy/AdvReac Type Severity Reaction Status Date / Time Penicillins Allergy Severe Hives Verified 09/26/24 10:48 acetaminophen [From Percocet] Allergy Intermediate Confusion Verified 09/26/24 10:48 adhesive tape Allergy Mild Rash Verified 09/26/24 10:48 codeine Allergy Mild Confusion Verified 09/26/24 10:48 irbesartan Allergy Mild Unknown Verified 09/26/24 10:48 nickel Allergy Mild Itching Verified 09/26/24 10:48 oxycodone [From Percocet] Allergy Mild Confusion Verified 09/26/24 10:48 simvastatin [From Zocor] Allergy Mild Cough Verified 09/26/24 10:48 hydrocodone [From Vicodin] AdvReac Mild Rash Verified 09/26/24 10:48 morphine AdvReac Mild Vomiting Verified 09/26/24 10:48 perindopril AdvReac Mild Rash Verified 09/26/24 10:48 sulfamethoxazole AdvReac Mild Nausea Verified 09/26/24 10:48 [From Bactrim] trimethoprim [From Bactrim] AdvReac Mild Nausea Verified 09/26/24 10:48 vancomycin AdvReac Mild Rash Verified 09/26/24 10:48 Home Medications Medication Instructions Recorded Confirmed Type glimepiride 4 mg tablet 4 mg PO QAM 12/20/23 09/26/24 History metformin 500 mg tablet 1,000 mg PO BID 12/20/23 09/26/24 History omega 9-wfe-gtx-fish oil 1,200 mg 1 cap PO QPM 12/20/23 09/26/24 History (144 mg-216 mg) capsule (Fish Oil) pravastatin 40 mg tablet 40 mg PO QPM 12/20/23 09/26/24 History Prevagen 10 mg PO QAM 12/23/23 09/26/24 History cholecalciferol (vitamin D3) 25 25 mcg PO QAM 12/23/23 09/26/24 History mcg (1,000 unit) capsule (Vitamin D3) insulin glargine 100 unit/mL 22 unit subcut HS 12/23/23 09/26/24 History subcutaneous solution (Lantus U-100 Insulin) insulin glargine 100 unit/mL 40 unit subcut QAM 12/23/23 09/26/24 History subcutaneous solution (Lantus U-100 Insulin) krill 1 cap PO QAM 12/23/23 09/26/24 History nzv-sk6-dfd-pfy-wr8-uwa-astax 1,500 mg-165 mg-67.5 mg capsule (Krill Oil ([place] 3 and 6)) vit C-vit S-lgchxt-miclgygn-omega 1 cap PO QAM 12/23/23 09/26/24 History 3 100 mg-15 unit-2 mg-100 mg capsule tramadol 50 mg tablet 50 mg PO Q6H PRN pain #30 tabs 02/07/24 09/26/24 Rx ondansetron HCl 4 mg tablet 4 mg PO Q8H PRN nausea and 02/15/24 09/26/24 Rx vomiting #20 tabs aspirin 81 mg tablet 81 mg PO QPM 09/26/24 09/26/24 History diphenhydramine HCl 25 mg capsule 25 mg PO HS PRN prn 09/26/24 09/26/24 History (Benadryl) exenatide 5 mcg/dose (250 5 mcg subcut BID 09/26/24 09/26/24 History mcg/mL)1.2 mL subcutaneous pen injector (Byetta) ibuprofen 200 mg tablet (Advil) 200 mg PO Q6H PRN prn 09/26/24 09/26/24 History losartan 100 mg tablet 100 mg PO QPM 09/26/24 09/26/24 History Past Med/Surg History Problem List Encounter for pre-operative examination Medical History Hypertension + white coat syndrome Osteoarthritis Knees Hyperlipidemia Hx of renal calculi Diabetes IDDM Surgical History History of anesthesia reaction difficulty waking Nausea and vomiting after administration of anesthetic agent Hx of nephrolithotomy with removal of calculi (~1971) History of arthroplasty of right knee Right TKA (02/06/24): SAB at L4-5 (1 attempt) + regional at [facility]. Per hospitalist note 02/08/24, "Patient had right total knee arthroplasty on 02/05/[address] Sands.. Hospital medicine was consulted on 02/06 due to acute onset of postoperative hypertension at 210/82... Patient normally takes losartan 25 mg p.o. QPM, but she notes this is for her kidneys.. Hydralazine 5 mg IV q4h as needed for SBP >200 mmHg.. Unclear etiology; given isolated systolic hypertension, normal blood pressures at home per the patient, this is most likely secondary to a combination of stress/pain and white coat syndrome.. I do not recommend an increase in at home losartan or new blood pressure medication at this time.. Transthoracic echocardiogram 02/08/2024 revealed ejection fraction of 60-65%, no regional wall abnormalities noted, left ventricular systolic function normal, mild concentric left ventricular hypertrophy.. Mag low at 1.4 on admission, repleted.. Magnesium sulfate 1 g x 2 given on 02/06 and 02/07.. Troponin elevated at 36.4-->50.3.. Clinically, patient denied chest pressure, headache, chest palpitations, or pleuritic CP.. Most likely secondary to demand ischemia" Hx of bilateral cataract extraction History of right mastoidectomy R/t tumor ("benign"), had repeat surgery approximately 18 months later for cyst Hx of tubal ligation Hx of bladder repair surgery Hx of vaginal hysterectomy History of lithotripsy History of arthroscopy of both knees Hx of tonsillectomy Social History Smoking Status: Former smoker Tobacco Type: Cigarettes Smoking End Date: 2003 (Hx /2 PPD); Second Hand Exposure: No; Do You Dip or Chew Tobacco: No; Tobacco Cessation Education Requested by Patient: No Hx Alcohol Use: No Hx Substance Use: No Preferred Language: Croatian Communication Ability: Effective Store Team Leader Required: No Beliefs That Will Affect Care: None Current Living Situation: Alone Other Information That Helps Us Care for You: No Feels Safe at Home: Yes Safety Concerns: Feels Safe At This Time Assistive Devices: Denture - Upper Review of Systems All systems reviewed & are unremarkable except as noted in HPI & below. Physical Exam On physical exam of the left knee, she does have valgus deformity. She has tenderness palpation mostly over the distal lateral femoral condyle and over the lateral joint line.. Constitutional WD/WN, vitals as above Eyes PERRL, conjunctivae normal, anicteric sclerae ENMT external ear and nose normal, oropharynx normal Neck trachea midline, no thyromegaly Respiratory normal respiratory effort Cardiovascular RRR, no murmur, no edema Gastrointestinal (Abdomen) normal bowel sounds, soft, nontender, no hepatosplenomegaly Psychiatric A+Ox3, euthymic affect Results & Data Results & Data Laboratory Results . Diagnostic Findings X-rays of the left knee show advanced osteoarthritis with joint space narrowing, osteophyte formation, and yigg-sn-cboy tubulation. PG Care Time/CCT Total # of Minutes Spent Total Time Spent with Patient: Total time spent is greater than 50% in coordination of care (as documented) at patient's floor/unit and/or counseling patient: Coding Level of Care Code None Diagnoses Osteoarthritis of left knee M17.12
[~2024-10-22 09:17] MED LIST: BUPIVACAINE 0.5 % 5 MG/1 ML PF 10ML VIAL ONE; ROPIVACAINE 0.5% 5 MG/ML 30 ML VIAL ONE
[2024-10-22] MEDS: FAMOTIDINE 20 MG TAB PO SCH (10:16)
[2024-10-22] MEDS: GABAPENTIN 300 MG CAP PO SCH (10:16)
[2024-10-22] MEDS: LR 500ML BOLUS, THEN 15ML/HR IV SCH (10:17)
[2024-10-22] MEDS: LR 60ML/HR IV SCH (10:17)
[2024-10-22] MEDS: ACETAMINOPHEN 500 MG TAB PO SCH ×2 (10:17→16:14)
[2024-10-22] MEDS: dexAMETHasone**PF** 10 MG/ML VIAL IV SCH (10:17)
[2024-10-22] MEDS ORDERED: KETAMINE HCL 10MG/ML SYR ONE (10:27)
[2024-10-22] MEDS ORDERED: GLYCOPYRROLATE 0.2 MG/ML VIAL ONE (10:27)
[2024-10-22] MEDS ORDERED: LIDOCAINE 2% 2 ML VIAL/AMP(20MG/ML) INFIL ONE (10:27)
[2024-10-22] MEDS ORDERED: ONDANSETRON INJ 2 MG/ML 2 ML VIAL ONE (10:27)
[2024-10-22] MEDS ORDERED: MIDAZOLAM HCL 1 MG/ML 2ML VIAL ONE (10:27)
[2024-10-22] MEDS ORDERED: PROPOFOL IV EMULSION 10 MG/ML 20 ML VIAL IV ONE (10:27)
--- NOTE | 2024-10-22 11:15 | History & Physical Bridge Note ---
Date of Service October 22, 2024 History & Physical Bridge Note I have examined the patient, reviewed the History & Physical and in the interval since the performance of the History & Physical I have noted the following changes of clinical significance: no changes noted
[2024-10-22] MEDS: TRANEXAMIC ACID 1,000 MG **IV Pre-op IV SCH (11:57)
[2024-10-22] MEDS: ceFAZolin 2000MG 2,000 MG/15 ML SYR IV SCH (12:10)
[2024-10-22] MEDS: ROPIV 0.5% 246mg, Ketorolac 30mg, EPINEPHrine 0.5mg in NSS INFIL SCH (12:42)
[2024-10-22] MEDS: ORTHO JOINT ANESTHETIC ONE (12:42)
[2024-10-22] MEDS: TRANEXAMIC ACID 1,000 MG **IV Intra-op IV SCH (13:00)
[2024-10-22] MEDS ORDERED: METOPROLOL TARTRATE 1 MG/ML VIAL IV ONE (13:12)
--- NOTE | 2024-10-22 13:13 | Operative Report ---
PG Post Operative Report Pre & Post Diagnosis Operation Date: 10/22/24 12:00 Pre-Op Diagnosis: Left Knee Osteoarthritis Post-Op Diagnosis: Left Knee Osteoarthritis I identified the patient and participated in the time-out.: Yes Procedure Operation Date: 10/22/24 12:00 Actual Procedures p Left Total Knee Arthroplasty(Left) - Josh Sands DO Surgeon Josh Sands DO Train Station Server Bora Gonzalez PA-C Estimated Blood Loss 30 Findings Consistent with Post-Op Diagnosis Specimens Left femoral and tibial bone Description of Procedure Implants used: I used a John Persona total knee arthroplasty system with a size 5 PS femur, C tibia, 31 oval patella, and a size 10 CPS polyethylene bearing. All components were cemented in place with Biomet cement. [facility] for the above procedure. She was seen in the preoperative holding area and the operative extremity was identified and signed. She was given a preoperative antibiotic, TXA, a spinal anesthetic and an adductor nerve block. She was taken back to the operating room and laid on the table in supine position. She was given basic sedation. The operative knee was then prepped and draped in sterile fashion. A timeout was done, and the patient and the operative extremity was properly identified. A midline incision was made directly over the patella. Dissection was taken down to the extensor mechanism. A midvastus arthrotomy was used. The medial retinaculum was released and the fat pad was mostly excised. The knee was flexed and the ACL, PCL, and meniscus were removed. A drill was sent down the center of the femoral canal followed by an intramedullary tony. Off that tony a distal femoral cutting block was placed. 9 mm was resected off the distal femur at 5 of valgus. A posterior referencing AP sizing guide was then placed on the distal femur. The femur measured to be a size 5. 2 drill holes were placed in 3 of external rotation. A 4-in-1 cutting block was then impacted into place. Anterior, posterior, and chamfer cuts were then made. The proximal tibia was then exposed. An external tibial alignment guide was placed. A tibial cut guide was then anchored in place and the proximal tibia was then resected. The posterior aspect of the knee was then opened up and any additional meniscus fragments and osteophytes were removed. The tibia measured to be a size C. The tibial plate was then placed in the appropriate rotation and the tibia was drilled and punched. Trial components were then placed. I used a size 10 CPS polyethylene insert. The knee was brought through a full range of motion and felt to be stable. The peg holes for the femoral component were then drilled. The patella was then everted and 9 mm was resected off the posterior aspect of the patella. The patella measured to be a size 31 oval. 3 peg holes were then drilled. A trial patella was placed. The knee was once again brought through a full range of motion and felt to be stable. Trial components were then removed. The surrounding soft tissues were injected with 100 cc of an orthopedic pain control cocktail. All components were then cemented into place with Biomet cement. The final polyethylene insert was then snapped into place A dilute betadyne lavage was then done for 3 minutes. The joint was then irrigated with normal saline solution. The midvastus arthrotomy was then closed with #1 Vicryl suture. The skin was closed with 2-0 Vicryl, 3- 0V lock suture, and kika. A soft compressive dressing was placed. She was then transferred to a hospital bed and taken to the postanesthesia care unit in stable condition. She tolerated the procedure well. Bora Gonzalez PA-C, was present for the entire procedure. He was critical for patient positioning, prepping, draping, retraction exposure, wound closure and application of sterile dressing. I attest to the content of the Intraoperative Record and any orders documented therein. Any exceptions are noted below.
--- NOTE | 2024-10-22 14:00 | Anesthesiology Progress Note ---
Date of Service October 22, 2024 Anesthesia Post Procedure Vital Signs Vital Signs: Temp Pulse Resp BP Pulse Ox O2 Del Method O2 Flow Rate 10/22/24 13:50 72 13 130/54 L 99 Room Air 0 10/22/24 13:40 80 18 126/63 99 Oxymask 4 10/22/24 13:30 97.2 F L 86 19 116/57 L 97 Oxymask 4 10/22/24 10:03 97.7 F 78 22 187/90 H 98 Room Air Transfer of Care Handoff Completed per policy Notes Mental Status: alert / awake / arousable and participated in evaluation Patient Amnestic to Procedure: Yes Nausea / Vomiting: adequately controlled Pain: adequately controlled Airway Patency, RR, SpO2: stable & adequate BP & HR: stable & adequate Hydration State: stable & adequate Neuraxial Anesthesia: was administered and sensory block is resolving Anesthetic Complications: no major complications apparent and Pt Satisfied with anesthetic care
--- NOTE | 2024-10-22 14:08 | XRay Report ---
XR knee LT 1 or 2V routine CLINICAL HISTORY: Surgical Post Op TECHNIQUE: 2 views of the left knee were obtained. Comparison: Comparison is made to knee radiographs 04/03/2024 FINDINGS: Patient is status post total knee arthroplasty with expected postsurgical changes including soft tiss ue swelling and subcutaneous emphysema. No periarticular lucency or hardware fracture is seen. IMPRESSION: Expected postoperative appearance status post placement of total knee arthroplasty. ACT 112: Negative or not required by law. Electronically signed by: Benigno Quintero M.D. 10/22/2024 2:07 PM
[2024-10-22] MEDS ORDERED: NALOXONE HCL 0.4 MG/1 ML VIAL/CARP IV PRN (15:41)
[2024-10-22] MEDS ORDERED: ONDANSETRON INJ 2 MG/ML 2 ML VIAL IV PRN (15:41)
[2024-10-22] MEDS ORDERED: METOCLOPRAMIDE HCL INJ 5 MG/ML 2 ML VIAL IV PRN (15:41)
[2024-10-22] MEDS ORDERED: PHARMACY GLYCEMIC MGMT CONSULT PRN (15:41)
[2024-10-22] MEDS ORDERED: bisacodyL 10 MG SUPP PR PRN (15:41)
[2024-10-22] MEDS ORDERED: HYDROmorphone INJ 0.5 MG/0.5 ML SYR IV PRN (15:41)
[2024-10-22] MEDS ORDERED: MAGNESIUM HYDROXIDE SUSP 30 ML UDC PO PRN (15:41)
[2024-10-22] MEDS ORDERED: oxyCODONE HCL IR 5 MG TAB (IMMEDIATE RELEASE) PO PRN (15:41)
[2024-10-22] MEDS ORDERED: GLUCAGON FOR INJ 1 MG VIAL SQ PRN (16:00)
[2024-10-22] MEDS ORDERED: CARBOHYDRATES FOR HYPOGLYCEMIA PO PRN (16:00)
[2024-10-22] MEDS ORDERED: GLUCOSE 10 TAB/TUBE PO PRN (16:00)
[2024-10-22] MEDS ORDERED: GLUCOSE 40% GEL 15 GM TUBE PO PRN (16:00)
[2024-10-22] MEDS ORDERED: DEXTROSE 50% 50 ML SYRINGE IV PRN (16:00)
[2024-10-22 16:13] VITALS: RESP 16
[2024-10-22] MEDS: KETOROLAC TROMETHAMINE 15 MG/ML VIAL IV SCH (16:22)
[2024-10-22] MEDS: LANTUS PER UNIT CHARGE SC ONE (18:11)
[2024-10-22] MEDS: INSULIN ASPART PER UNIT CHARGE SC SCH (18:12)
[2024-10-22] MEDS: traMADol HCL 50 MG TABLET PO PRN (18:52)
[2024-10-22] MEDS ORDERED: metFORMIN HCL 500 MG TAB PO SCH (21:00)
[2024-10-22] MEDS ORDERED: [UNRECOGNIZED DRUG - OTHER] SQ SCH (21:00)
[2024-10-22] MEDS ORDERED: EXENATIDE SQ SCH (21:00)
[2024-10-22] MEDS ORDERED: LANTUS PER UNIT CHARGE SQ SCH (21:00)
[2024-10-22] MEDS: LOSARTAN POTASSIUM 50 MG TAB PO SCH (21:17)
[2024-10-22] MEDS: PRAVASTATIN SOD 40 MG TAB PO SCH (21:17)
[2024-10-22] MEDS: SENNA 8.6 MG TAB PO SCH (21:17)
[2024-10-22] MEDS: DOCUSATE SODIUM 100 MG CAP PO SCH (21:17)
[2024-10-22] MEDS: ASPIRIN 81 MG ECTAB PO SCH (21:17)
[2024-10-22] MEDS: ceFAZolin 1000MG 1,000 MG/7.5 ML SYR IV SCH (21:18)
[2024-10-22] MEDS: LANTUS PER UNIT CHARGE SC SCH (21:19)
[2024-10-23] MEDS: INSULIN ASPART PER UNIT CHARGE SC SCH (00:05)
[2024-10-23 07:26] VITALS: BP 173/71; PULSE 58; TEMP 98.1; O2SAT 96
[2024-10-23] MEDS ORDERED: LANTUS PER UNIT CHARGE SQ SCH (09:00)
[2024-10-23] MEDS ORDERED: GLIMEPIRIDE 2 MG TAB PO SCH (09:00)
[2024-10-23] MEDS ORDERED: PREVAGEN PO SCH (09:00)
[2024-10-23] MEDS: MULTIVITAMIN TAB PO SCH (09:15)
[2024-10-23] MEDS: LANTUS PER UNIT CHARGE SC SCH (09:16)
--- NOTE | 2024-10-23 09:27 | Pharmacy Report ---
Pharmacy Glycemic Short Note 2 - Date of Service October 23, 2024 - Glycemic Short BSG Results (Last 24 hours): 10/22/24 10/22/24 10/22/24 10:04 13:34 16:37 POC Glucose 152 H 157 H 312 H* 10/22/24 10/22/24 10/22/24 16:44 20:47 23:57 POC Glucose 299 H 266 H 195 H 10/23/24 10/23/24 04:10 07:36 POC Glucose 134 H 126 H OUTPATIENT ANTIDIABETIC REGIMEN: * Lantus 40 units SC qAM * Lantus 22 units SC HS * Metformin 1 g PO BIDM * Glimepiride 4 mg PO qAM HbA1c: 7% (10/03/24) ASSESSMENT: * SB is a 79 year old female POD #1 s/p left total knee arthroplasty * Received 10 mg IV dexamethasone in OR, blood sugars elevated postoperatively * Ordered one-time dose of dexamethasone 8 mg PO this morning * Will maintain aggressive SC basal/bolus regimen today PLAN FOR INPATIENT GLYCEMIC CONTROL: * Hold outpatient oral diabetes medications * Basal insulin * Lantus 30 units SQ BID * Bolus insulin * NovoLog per scale ACHS or Q6hrs while NPO * Goal Range: Low 110 mg/dL - High 140 mg/dL * Correction Factor: 15 mg/dL/unit * Nutritional / Prandial insulin per carb ratio of 1 unit per 5 grams CHO consumed
--- NOTE | 2024-10-23 10:03 | Orthopedic Progress Note ---
Date of Service October 23, 2024 Assessment & Plan (1) Status post left knee replacement: Assessment: Status post left total knee arthroplasty Plan: Overall, she is doing quite well today with good pain control left knee. She will work with physical therapy and Occupational Therapy today to work on ambulation and range of motion exercises to the left knee. Dressings may be changed after completion of physical therapy. She is on aspirin for DVT prophylaxis. She can be discharged home later this morning pending formal physical therapy evaluation recommendations. She will follow-up with orthopedics in 2 weeks for continued postoperative management. She verbalized understanding and agrees with this plan. Subjective . Sommer was seen and evaluated bedside this morning resting Complan no apparent distress. She notes that her pain is well-controlled to the left knee. She has been up and out of bed with no significant issues. She has yet to be seen by physical therapy this morning. She denies any concerns with her surgical incision site. She denies any active bleeding, discharge, or signs of infection. She denies any low back pain, proximal/distal extremity pain, numbness/ting, or paresthesias. She denies any other concerns today. Review of Systems All systems reviewed & are unremarkable except as noted in HPI & below. Physical Exam . Focused exam of the left knee shows intact dressings with no signs of active bleeding, discharge, or signs of infection. No tenderness to palpation. Limited range of motion to the left knee secondary to discomfort and weakness. Calf soft nontender to palpation. Negative Homans' sign. Intact plantarflexion and dorsiflexion of left ankle. +2 DP and PT pulse. Less than 2-second capillary refill. Normal sensation. Neurovascular intact. Results & Data Results & Data Laboratory Results . Diagnostic Findings . PG Care Time/CCT Total # of Minutes Spent Total Time Spent with Patient: Total time spent is greater than 50% in coordination of care (as documented) at patient's floor/unit and/or counseling patient: Coding Level of Care Code 69878 Post Operative Follow-Up Diagnoses Status post left knee replacement Z96.652
--- NOTE | 2024-10-23 10:05 | Discharge Summary ---
Date of Service October 23, 2024 Admission HPI (Per Admitting) Sommer is a pleasant 79-year-old female who we did a right knee replacement on in January 2024. She has done very well with that. Unfortunately, she is now complaining of left knee pain. She has known arthritis of her left knee. She is really struggling with the valgus deformity. After failed conservative treatment, she has elected to proceed with a left total knee arthroplasty. Admission Exam (Per Admitting) On physical exam of the left knee, she does have valgus deformity. She has tenderness palpation mostly over the distal lateral femoral condyle and over the lateral joint line.. Principal Diagnosis Same as "Discharge Diagnosis" noted below under Discharge Instructions. Discharge Exam . Focused exam of the left knee shows intact dressings with no signs of active bleeding, discharge, or signs of infection. No tenderness to palpation. Limited range of motion to the left knee secondary to discomfort and weakness. Calf soft nontender to palpation. Negative Homans' sign. Intact plantarflexion and dorsiflexion of left ankle. +2 DP and PT pulse. Less than 2-second capillary refill. Normal sensation. Neurovascular intact. Discharge Data Procedures Performed Operation Date: 10/22/24 12:00 Actual Procedures p Left Total Knee Arthroplasty(Left) - Josh Sands DO Ordered Studies 10/22/24 05:00 US - OR guided needle placemen Stat Hospital Course (1) Status post left knee replacement: Sommer arrived to him on the knee on 10/22/2024 and underwent a left total knee arthroplasty performed by Dr. Sands with no complications. She had a spinal anesthetic. Postoperatively, she was started on aspirin for DVT prophylaxis and was transferred to the general orthopedic floor in stable condition. Her hospital course was unremarkable. On postoperative day 1, her vital signs are stable and her pain was well-controlled. She participated well with physical therapy working on ambulation and range of motion exercises. She was then discharged home in stable condition. She will follow-up with orthopedics in 2 weeks for continued postoperative management. PG Care Time/CCT Total # of Minutes Spent Total Time Spent with Patient: Total time spent is greater than 50% in coordination of care (as documented) at patient's floor/unit and/or counseling patient: Discharge Plan Discharge Items Patient Disposition: Home - Home Health Services Reason For Visit: Left Knee Arthritis Discharge Diagnosis: Status Post Left TKA Activity: Per Instructions section Non-emergency contact: Surgeon Call non-emergency contact if: you have any medication questions, your symptoms worsen, your pain is not controlled, your pain is worsening, your pain is unusual for you, your pain is concerning for you, you have a fever, your rectal temperature is above 100.4, your temperature is above 101, your temperature is above 101.5, your wound has increased redness, your wound has increased drainage and your wound pain has increased Follow-up/Referrals: April Conte D.O. [Primary Care Provider] - Diet: Regular Addtl Attending Provider Instructions: Activity and Therapy Recommendations: * If you are using [facility] then therapy will be provided at your home until they feel you have accomplished all of your goals. * If you are using [facility] then Physical Therapy will be provided until they feel you are ready to start Outpatient Physical Therapy. * If you are not using home therapy then Outpatient Physical Therapy should start about 3-5 days from your day of surgery. Therapy will last about 6-10 weeks * It is important not to put a pillow under your knee when you are relaxing or sleeping. It is just as important to make sure you are getting your knee perfectly straight as it is to regain your knee bend. * You were shown a series of exercises in the hospital. Do these exercises three times each day including the exercises you were shown in physical therapy. * Get up and walk several times each day. For the first four weeks, try not to stand or walk for more than one hour at a time. If you do stand or walk for more than one hour, you will not hurt anything, but your leg will likely swell. * As you feel comfortable, you may change from the walker or crutches to a cane and then to independent walking. Medications: * Narcotic You will likely be sent home from the hospital with a prescription for the narcotic pain medication that worked best throughout your stay. * Cefadroxil -take the antibiotic twice a day for 10 days to help prevent infection. * Aspirin Most patients will be required to take Aspirin 81mg twice a day for 6 weeks after surgery. This is obtained [id number] and a prescription is not necessary. * Other medications may be prescribed for specific circumstances. If you have any questions, please call the office at . * Resume previous home medications unless otherwise instructed TEDs/Elastic Stockings: The white elastic stockings help limit swelling and prevent blood clots from forming in your legs.~ The more you wear them, the more they work. Wear them for six weeks. Dressing Care: The dressing can be changed after physical therapy on postop day #1. Daily dry dressing changes for a few days, especially if the incision is still draining some. If the incision is not draining then you may leave the kika open to air. If there is a little bit of drainage or if the kika are getting stuck on your clothing then cover the incision with a dry dressing. The kika will be removed at your 2 week follow-up appointment. Showering: You may shower 5 days from the day of surgery as long as the incision is no longer draining. You may shower with the kika exposed. Let soapy water run over the kika and pat them dry. Do not scrub or soak the incision. Diet: You may resume your previous diet. Things To Watch For: * Drainage from the incision site that occurs more than one week after your surgery. * Increased redness at the incision site. * Fever above 102 degrees Fahrenheit. * Unusual chest pain or shortness of breath. * Call [facility] at with any of the above problems Follow-Up Visit: Follow-up with Dr. Sands's office 2-3 weeks after your day of surgery. We will remove your kika and answer any questions. If you have any additional questions or concerns, Dr Sands is usually in the office at the same time and will be available An appointment was probably scheduled when you signed-up for surgery in the office. If you have any questions call Office Instructions: More detailed instructions as well as Frequently Asked Questions were provided in a folder by our office when you signed-up for surgery. Please review these instructions when you get home. If you have any further questions or concerns, please feel free to call the office at [phone] Pending Studies at Discharge: No Stand-Alone Forms: [employer], Smoking Cessation Medications and DC Order Prescriptions: New aspirin [Adult Aspirin Regimen] 81 mg tablet,delayed release (DR/EC) 81 mg PO BID Qty: 84 0RF cefadroxil 500 mg capsule 500 mg PO BID 10 Days Qty: 20 0RF oxycodone 5 mg tablet 5 mg PO Q6H PRN (Reason: pain) Qty: 30 0RF Continued ondansetron HCl 4 mg tablet 4 mg PO Q8H PRN (Reason: nausea and vomiting) Qty: 20 0RF metformin 500 mg tablet 1,000 mg PO BID omega 4-arp-kyh-fish oil [Fish Oil] 1,200 (144-216) mg capsule 1 cap PO QPM glimepiride 4 mg tablet 4 mg PO QAM pravastatin 40 mg tablet 40 mg PO QPM insulin glargine [Lantus U-100 Insulin] 100 unit/mL Solution 40 unit SUBCUT QAM insulin glargine [Lantus U-100 Insulin] 100 unit/mL Solution 22 unit SUBCUT HS cholecalciferol (vitamin D3) [Vitamin D3] 25 mcg (1,000 unit) Capsule 25 mcg PO QAM vit C-vit P-[id number]-[id number]-3 [id number] wi-lolw-op-mg Capsule 1 cap PO QAM Krill Oil ([place] 3 and 6) 1,500-165-67.5 mg Capsule 1 cap PO QAM Prevagen 1 unit 10 mg PO QAM diphenhydramine HCl [Benadryl] 25 mg Capsule 25 mg PO HS PRN (Reason: prn) aspirin 81 mg Tablet 81 mg PO QPM losartan [Cozaar] 100 mg tablet 100 mg PO QPM exenatide [Byetta] 5 mcg/dose (250 mcg/mL) 1.2 mL Pen Injector 5 mcg SUBCUT BID ibuprofen [Advil] 200 mg Tablet 200 mg PO Q6H PRN (Reason: prn) Krames/Other Patient Handouts: Managing Type 2 Diabetes Admission Data Admit Date/Time: 10/22/24 13:36 Attending Provider: Josh Sands Admit Provider: Josh Sands Primary Care Provider: April Conte Other Interventions: Discharge Summary Assessment (RN) Last Done: 10/23/24 09:32
[2024-10-23] MEDS: dexAMETHasone 4 MG TAB PO SCH (11:54)
== END 2024-10-23 13:00 | disposition home health service (06) ==
LOC: ASU 09:17 → 3E 09:17
DX: E78.5 Hyperlipidemia, unspecified; Z88.0 Allergy status to penicillin; Z88.5 Allergy status to narcotic agent; Z87.891 Personal history of nicotine dependence; Z88.8 Allergy status to other drugs, medicaments and biological substances; Z79.85 Long-term (current) use of injectable non-insulin antidiabetic drugs; E11.9 Type 2 diabetes mellitus without complications; Z96.651 Presence of right artificial knee joint; Z88.2 Allergy status to sulfonamides; M25.762 Osteophyte, left knee; Z79.84 Long term (current) use of oral hypoglycemic drugs; Z88.1 Allergy status to other antibiotic agents; I10 Essential (primary) hypertension; Z79.4 Long term (current) use of insulin; Z79.899 Other long term (current) drug therapy; Z79.82 Long term (current) use of aspirin; M17.12 Unilateral primary osteoarthritis, left knee; M11.262 Other chondrocalcinosis, left knee; Z91.09 Other allergy status, other than to drugs and biological substances